=== PATIENT | male | born 1965 | race Caucasian/White ===

== ENCOUNTER 2020-01-01 08:02 | Emergency (ER) | payer BC, SELFPAY ==
[2020-01-01 08:09] VITALS: BP 161/86; PULSE 56; RESP 20; TEMP 36.7; O2SAT 100
--- NOTE | 2020-01-01 08:20 | ED.SKABFB ---
HPI - Skin/Abscess/Foreign Bdy General Chief complaint: Skin/Abscess/Foreign Body Stated complaint: left arm bite Time Seen by Provider: 01/01/20 08:20 Source: patient Mode of arrival: ambulatory Limitations: no limitations History of Present Illness HPI narrative: Yvon Shankar is a 54 yo male with a PMH of high cholesterol, GERD, anxiety, chronic pain, HTN, who comes to express with small induration of L forearm which he states started 2 days ago. 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, also was asking about the left leg keratosis that was treated by a chemistry specialist with what seems to be Lotrimin Related Data Home Medications Medication Instructions Recorded Confirmed albuterol sulfate 1 inh INHALATION QID PRN 01/01/20 01/01/20 aspirin 81 mg PO DAILY 01/01/20 01/01/20 atorvastatin 10 mg PO DAILY 01/01/20 01/01/20 escitalopram oxalate 20 mg PO DAILY 01/01/20 01/01/20 meloxicam 15 mg PO DAILY 01/01/20 01/01/20 pantoprazole 40 mg PO HS 01/01/20 01/01/20 propranolol 10 mg PO TID 01/01/20 01/01/20 Allergies Allergy/AdvReac Type Severity Reaction Status Date / Time No Known Allergies Allergy Verified 01/01/20 08:20 Review of Systems Review of Systems: Narrative: CONSTITUTIONAL: Denies fever, chills, sweats. EYES: Denies visual changes, redness, discharge. ENT: Denies rhinorrhea, congestion, sore throat, otalgia. CARDIOVASCULAR: Denies chest pain, palpitations, edema. RESPIRATORY: Denies dyspnea, wheezing, cough GASTROINTESTINAL: Denies abdominal pain, nausea, vomiting, diarrhea. GENITOURINARY: Denies dysuria, hematuria, abnormal discharge SKIN: Denies rash -has induration on left forearm NEUROLOGIC: Denies numbness, or focal weakness. PSYCHIATRIC: Denies anxiety or depression. [facility] Family History Family History (Updated 01/01/20 @ 08:34 by Domitila Sinclair CNP) Other Hypertension Social History Social History (Updated 01/01/20 @ 08:35 by Domitila Sinclair CNP) Smoking packs per day: 2 Smoking cigarettes per day: 40.0 Years smoked: 40 Smoking pack-years: 80.00 Smoking status: Current every day smoker Alcohol intake: current Alcohol use details: 6-15 beers per day Gender identity (if verbalized by the patient): Male Comments At time of signature, I agree with nursing past medical, surgical, social and family history. There is no relevant family history pertinent to the presenting complaint. Exam Narrative: Exam Narrative: GENERAL: This is a well-nourished, well-developed patient, in mild distress. HEAD: normocephalic, atraumatic. EYES: Sclera clear/white. Vision is grossly intact. EARS: External ears normal, auditory canals clear and without drainage, TMs normal without perforation. Hearing grossly intact. NOSE: External nose normal without nasal discharge, nares without redness, no rhinorrhea. THROAT: Mucous membranes moist, NECK: Neck supple, non-tender CARDIOVASCULAR: Regular rate and rhythm without murmurs, gallops, or rubs. RESPIRATORY: Clear to auscultation. Breath sounds equal bilaterally. No wheezes, rales, or rhonchi. GASTROINTESTINAL: Abdomen soft, non-tender, SKIN: warm, intact with no suspicious lesions -red indurated lesion left forearm with 2 small scabs in the center NEURO: awake, alert, and oriented to person, place and time. There were no obvious focal neurologic abnormalities. Steady gait EXTREMITIES: Normal range of motion. heratosis on L BACK: Nontender without deformity Course Course Emergency Course: Patient started on Keflex and directed to get hydrocortisone; keep area covered Discussed with patient his tobacco abuse and implications of 2 packs of cigarettes a day; patient states is very difficult to quit smoking. When asked about his alcohol use he says he drinks 15 beers a day; he also complained of shakes in the morning and I asked that was related to alcohol use in his
== END 2020-01-01 08:40 | disposition home or self-care (01) ==
PROVIDERS: Emergency Provider Nurse Practitioner
DX: L03.114 Cellulitis of left upper limb (principal); F17.210 Nicotine dependence, cigarettes, uncomplicated; E78.00 Pure hypercholesterolemia, unspecified; K21.9 Gastro-esophageal reflux disease without esophagitis; I10 Essential (primary) hypertension
CPT/HCPCS: 99213; G0463

== ENCOUNTER 2021-07-23 11:27 | Emergency (ER) | payer BC, SELFPAY ==
[2021-07-23 11:33] VITALS: BP 140/73; PULSE 65; RESP 14; TEMP 37.2; O2SAT 97
--- NOTE | 2021-07-23 11:42 | ED.URI ---
HPI - URI/Sore Throat General Chief Complaint: Upper Respiratory Infection Stated Complaint: cough and congestion Time Seen by Provider: 07/23/21 11:30 Source: patient and RN notes reviewed History of Present Illness HPI Narrative: Patient is a 56-year-old male who presents the urgent care with complaints of increased cough, congestion, postnasal drainage and sinus pressure. Patient states is been ongoing for approximately a week and a half and the cough is worsened at night. Patient does have a history of emphysema and COPD and continues to smoke 2 packs/day. Denies of any fever, chills, nausea, vomiting or shortness of breath. Patient denies of any known exposures to Covid or influenza. No other acute complaints. No acute distress noted. Patient aware of the plan of care. Some parts of this dictation were generated by voice recognition software and may contain typographical and/or grammatical inaccuracies. Related Data Home Medications Medication Instructions Recorded Confirmed albuterol sulfate 1 inh INHALATION QID PRN 01/01/20 07/23/21 aspirin 81 mg PO DAILY 01/01/20 07/23/21 atorvastatin 10 mg PO DAILY 01/01/20 07/23/21 escitalopram oxalate 20 mg PO DAILY 01/01/20 07/23/21 meloxicam 15 mg PO DAILY 01/01/20 07/23/21 pantoprazole 40 mg PO HS 01/01/20 07/23/21 propranolol 10 mg PO TID 01/01/20 07/23/21 Allergies Allergy/AdvReac Type Severity Reaction Status Date / Time No Known Allergies Allergy Verified 07/23/21 11:31 Review of Systems Review of Systems: CONSTITUTIONAL: Denies fever, chills, or sweats. EYES: Denies visual changes, redness, or discharge. ENT: Reports of drainage, sinus pressure, congestion CARDIOVASCULAR: Denies chest pain, palpitations, or edema. RESPIRATORY: Reports of cough with normal amount of dyspnea due to history GASTROINTESTINAL: Denies abdominal pain, nausea, vomiting, or diarrhea. GENITOURINARY: Denies dysuria or hematuria. SKIN: Denies rash or itching. MUSCULOSKELETAL: Denies back pain, joint pain, or myalgia. NEUROLOGIC: Denies headache, numbness, or weakness. All other systems reviewed are negative, except as documented in HPI. [facility] Family History Family History (Updated 01/01/20 @ 08:34 by Domitila Sinclair CNP) Other Hypertension Social History Social History (Updated 01/01/20 @ 08:35 by Domitila Sinclair CNP) Smoking packs per day: 2 Smoking cigarettes per day: 40.0 Years smoked: 40 Smoking pack-years: 80.00 Smoking status: Current every day smoker Alcohol intake: current Alcohol use details: 6-15 beers per day Gender identity (if verbalized by the patient): Male Comments At the time of my signature, I reviewed and agree with the nursing past medical, surgical, social, and family history. There is no relevant family history pertinent to the patient complaint. Exam Narrative: GENERAL: This is a well-nourished, well-developed patient, in no apparent distress. HEAD: normocephalic, atraumatic. EYES: PERRL. Sclera clear/white. Vision is grossly intact. EARS: External ears normal, auditory canals clear and without drainage, TMs normal without perforation. Hearing grossly intact. NOSE: External nose normal with no obvious nasal discharge, nares without redness, clear rhinorrhea. THROAT: Mucous membranes moist, mild erythema with moderate postnasal drainage NECK: Neck supple CARDIOVASCULAR: Regular rate and rhythm without murmurs, gallops, or rubs. RESPIRATORY: Slight crackles throughout SKIN: warm, intact with no suspicious lesions or rash, good texture and turgor. NEURO: awake, alert, and oriented to person, place and time. There were no obvious focal neurologic abnormalities. EXTREMITIES: No clubbing, cyanosis, or edema. Course Vital Signs Vital signs: Vital Signs Temperature 98.9 F 07/23/21 11:33 Pulse Rate 65 07/23/21 11:33 Respiratory Rate 14 07/23/21 11:33 Blood Pressure 140/73 07/23/21 11:33 Pulse Oximetry 97 07/23/21 11:
== END 2021-07-23 11:55 | disposition home or self-care (01) ==
PROVIDERS: Emergency Provider Nurse Practitioner Family
DX: J40 Bronchitis, not specified as acute or chronic (principal); J43.9 Emphysema, unspecified; F17.210 Nicotine dependence, cigarettes, uncomplicated; Z79.82 Long term (current) use of aspirin
CPT/HCPCS: 99213; G0463

== ENCOUNTER 2024-10-18 08:48 | Emergency (ER) | payer BC, SELFPAY ==
--- OUTSIDE RECORDS SUMMARY | 2024-10-18 08:51 | XMS_ITS | Encounter Summary ---
Author Organization [facility] Address [address] [place] [address] Phone Care Team Providers Care Medical Aides Teacher Name Role Phone Melinda Souza MD Primary Care Provider [phone] Rolando Rodriguez MD Unavailable Carly Melgar Primary Care Provider + Reason for Visit * Reason Comments Medication Refill Encounter Details Date Type Department Care Team (Late st Contact Info) Description 11/23/2022 Refill [facility] - Family Medicine [facility] [address] [place] [address] Melinda Souza MD [address] [place] [address] Medication Refill Social History Tobacco Use Types Packs/Day Years Used Date Smoking Tobacco: Every Day Cigarettes 1 40 Smokeless Tobacco: Never Alcohol Use Standard Drinks/Week Comments Yes 12 (1 standard drink = 0.6 oz pu re alcohol) PHQ-2 Answer Date Recorded Total Score - Questions 1-9 0 02/2023 Education Answer Date Recorded What is the highest level of school you have completed or the highest degree you have received? GED or equivalent 12/2020 Sexually Active Control Partners Comments Yes Female Sex and Gender Information Value Date Recorded Sex Assigned at Not on file Legal Sex Male 11:19 PM CDT Gender Identity Not on file Sexual Orientation Not on file COVID-19 Exposure Response Date Recorded In the last 10 days, have yo u been in contact with someone who was confirmed or suspected to have Coronavirus/COVID-19? No / Unsure 11/03/2022 7:56 AM DEVELOPMENT EDUCATOR documented as of this encounter Miscellaneous Notes * Telephone Encounter - Rosalinda Liu RN - 11/23/2022 3:25 PM CDT PRN medication requires review from provider Per nursing clinical judgement, provider to review and approve the medication(s) order(s) if appropriate. Requested Prescriptions Pending Prescriptions Disp Refills sildenafil citrate (VIAGRA) 100 MG Tablet [Pharmacy Med Name: Sildenafil Citrate 100 MG Oral Tablet] 30 Tablet 0 Sig: TAKE 1 TABLET BY MOUTH NEEDED FOR ERECTILE DYSFUNCTION Erectile Dysfunction Medication Protocol Passed - 11/23/2022 2:00 PM Passed - Visit with relevant provider in past 12 months or upcoming 90 days Recent Visits Date Type Provider Dept 11/03/22 Office Visit Melinda Souza MD [facility] 05/06/22 Office Visit Melinda Souza MD [facility] Showing recent visits within past 365 days and meeting all other requirements Future Appointments Date Type Provider Dept 02/09/23 Appointment Melinda Souza MD [facility] Showing future appointments within next 90 days and meeting all other requirements Passed - Absence of nitrates on med list Passed - Erectile dysfunction on problem list documented in this encounter Plan of Treatment Upcoming Encounters Date Type Department Care Team (Late st Contact Info) Description 11/20/2024 8:45 AM CDT Office Visit [facility] - [facility] - [place] [address] [place] [address] Carly Melgar PAC [address] [place] [address] documented as of this encounter Visit Diagnoses Not on filedocumented in this encounter Additional Health Concerns Assessment Noted Time PHQ-9 Depression Total Score: 0 11/04/19 8:00 AM DEVELOPMENT EDUCATOR documented as of this encounter Care Teams Medical Aides Teacher Relationship Specialty Start Date End Date Melinda Souza MD [address] [place] [address] PCP - General Family Medicine 08/17/17 10/03/23 Carly Melgar PAC [address] [place] [address] PCP - General Physician Tour Coordinator 10/05/23 Rolando Rodriguez MD [address] [address] Consulting Physician Endocrinology 06/29/22 documented as of this encounter
--- OUTSIDE RECORDS SUMMARY | 2024-10-18 08:51 | XMS_ITS | Encounter Summary ---
Author Organization [facility] Address [address] [place] [address] Phone Care Team Providers Care Senior Quality Methods Specialist Name Role Phone Melinda Souza MD Primary Care Provider [phone] Rolando Rodriguez MD Unavailable Carly Melgar Primary Care Provider + Reason for Visit * Reason Comments Medication Refill Encounter Details Date Type Department Care Team (Late st Contact Info) Description 02/06/2023 Refill [facility] - Family Medicine [facility] [address] [place] [address] Melinda Souza MD [address] [place] [address] Medication Refill Social History Tobacco Use Types [...] suspected to have Coronavirus/COVID-19? No / Unsure 02/09/2023 7:24 AM CDT documented as of this encounter Miscellaneous Notes * Telephone Encounter - Rosalinda Liu RN - 02/08/2023 9:22 AM CDT PRN medication requires review from provider Per nursing clinical judgement, provider to review and approve the medication(s) order(s) if appropriate. Requested Prescriptions Pending Prescriptions Disp Refills sildenafil citrate (VIAGRA) 100 MG Tablet [Pharmacy Med Name: Sildenafil Citrate 100 MG Oral Tablet] 30 Tablet 0 Sig: TAKE 1 TABLET BY MOUTH NEEDED FOR ERECTILE DYSFUNCTION Erectile Dysfunction Medication Protocol Passed - 02/06/2023 11:19 AM Passed - Visit with relevant provider in [...] [facility] - [place] [address] [place] [address] Carly Melgar PAC [address] [place] [address] documented as of this encounter Visit Diagnoses Not on filedocumented in this encounter Additional Health Concerns Assessment Noted Time PHQ-9 Depression Total Score: 0 03/07/20 23 8:00 AM TAX COLLECTOR documented as of this encounter Care Teams Senior Quality Methods Specialist Relationship Specialty Start Date End Date Melinda Souza MD [address] [place] [address] PCP - General Family Medicine 08/17/17 10/03/23 Carly Melgar PAC [address] [place] [address] PCP - General Physician Professional Skateboarder 10/05/23 Rolando Rodriguez MD [address] [address] Consulting Physician Endocrinology 06/29/22 documented as of this encounter
--- OUTSIDE RECORDS SUMMARY | 2024-10-18 08:51 | XMS_ITS | Referral Summary ---
Author Organization [facility] Address [address] [place] [address] Care Team Providers Care Evs Attendant Name Role Phone Carly Melgar Primary Care Provider Allergies No known active allergies Medications dicyclomine (BENTYL) 10 mg capsule take 1 - 2 Capsule by ORAL route every day as needed 30 5 01/06/20 17 Active multivitamin capsule take 1 capsule by oral route every day 0 03/24/20 12 Active atorvastatin (LIPITOR) 10 mg tablet Take 1 tablet (10 mg total) by mouth daily. 90 tablet 3 02/20/20 17 Active propranoloL (INDERAL) 10 mg tabletIndicati ons:hypertensi on Take 1 tablet (10 mg total) by mouth 3 (three) times a day Active escitalopram (LEXAPRO) 10 mg tabletIndicati ons:Anxiety with Depression Take 2 tablets (20 mg total) by mouth daily Active aspirin 81 mg enteric coated tabletIndicati ons:prevention of thrombosis Take 1 tablet (81 mg total) by mouth daily Active pantoprazole DR (PROTONIX) 40 mg EC tablet Take 1 tablet (40 mg total) by mouth daily Active celecoxib (CeleBREX) 200 mg capsule Take 1 capsule (200 mg total) by mouth 2 (two) times a day Active venlafaxine (EFFEXOR) 37.5 mg tablet Take 1 tablet (37.5 mg total) by mouth 2 (two) times a day Active HYDROcodone-ac etaminophen (NORCO) 7.5-325 mg per tabletIndicati ons:Pain Take 1 tablet by mouth every 6 (six) hours as needed for pain Active fluticasone propionate (FLONASE) 50 mcg/actuation nasal sprayIndicatio ns:Chronic rhinitis Administer 2 sprays into each nostril daily 16 g 11 03/08/20 23 Active Additional Information Patient not taking.Reported on 10/12/2023 famotidine (PEPCID) 40 mg tabletIndicati ons:Laryngeal spasm TAKE 1 TABLET(40 MG) BY MOUTH EVERY NIGHT 90 tablet 10/09/19 25 Active famotidine (PEPCID) 40 mg tabletIndicati ons:Laryngeal spasm Take 1 tablet (40 mg total) by mouth nightly 30 tablet 1 08/09/20 24 025 Discontinued Active Problems Problem Noted Date Diagnosed Date Pharyngoesophageal dysphagia 10/12/2023 Assessment & Plan (10/12/2023 12:38 PM CATERING SERVICE MANAGER): Esophagram Referral to GI for EGD Continue famotidine 40 mg at bedtime Continue smoking cessation Personal interpretation CT Neck: fullness in the posterior glottis area, no lymphadenopathy Lymphadenopathy 03/08/2023 Assessment & Plan (03/08/2023 8:31 AM CDT): CT neck Chronic rhinitis 03/08/2023 Assessment & Plan (03/08/2023 8:30 AM CDT): Flonase 2 sprays into each nostril while looking down over the sink, do not sniff in or blow nose after use for at least 30 minutes daily Sore throat 03/08/2023 Assessment & Plan (03/08/2023 8:31 AM CDT): Pepcid [address] neck Laryngeal spasm 03/08/2023 Assessment & Plan (10/12/2023 12:38 PM CATERING SERVICE MANAGER): Esophagram Referral to GI for EGD Continue famotidine 40 mg at bedtime Continue smoking cessation Assessment & Plan (03/08/2023 8:31 AM CDT): Pepcid 40 mg at bedtime Laryngopharyngeal reflux discussed and Handout provided Special screening for malignant neoplasms, colon 01/10/2020 Overview (01/10/2020): Added automatically from request for surgery [id number] Social History Tobacco Use Types Packs/Day Years Used Date Smoking Tobacco: Every Day Cigarettes 2 40 Smokeless Tobacco: Current Tobacco Cessation:Ready to Q uit: Not Asked; Counseling Given: Not Answered Comments:Smoking History Packs/day: 1.5 Packs Daily Cannabis use Alcohol Use Standard Drinks/Week Comments Yes 30 (1 standard drink = 0.6 oz pu re alcohol) AUDIT-C Answer Date Recorded Q1: How often do you have a drink containing alcohol? 4 or more times a week 10/26/2023 Q2: How many drinks containi ng alcohol do you have on a typical day when you are drinking? 7 to 9 Q3: How often do you have si x or more drinks on one occasion? Daily or almost daily 10/26/2023 Personal Safety Answer Date Recorded Have you ever been in or are you currently in a harmful physical or emotional relationship or is someone making you feel afraid or unsafe? Denies 10/26/2023 Sex and Gender Information Value Date Recorded Sex Assigned at Not on file Legal Sex Male 1:44 PM CATERING SERVICE MANAGER Gender Identity Not on file Sexual Orientation Not on file Last Filed Vital Signs Vital Sign Reading Time Taken Comments Blood Pressure 136/82 10/26/2023 8:50 AM CATERING SERVICE MANAGER Pulse 57 10/26/2023 8:50 AM CATERING SERVICE MANAGER Temperature 36.7 C (98 F) 10/26/2023 8:50 AM CATERING SERVICE MANAGER Respiratory Rate 18 10/26/2023 8:50 AM CATERING SERVICE MANAGER Oxygen Saturation 100% 10/26/2023 8:50 AM CATERING SERVICE MANAGER Inhaled Oxygen Concentration - - Weight 82.6 kg (182 lb) 10/26/2023 7:32 AM CATERING SERVICE MANAGER Height 167.6 cm (5' 6 ) 10/26/2023 7:32 AM CATERING SERVICE MANAGER Body Mass Index 29.38 10/26/2023 7:32 AM CATERING SERVICE MANAGER Plan of Treatment Not on file Procedures Procedure Name Priority Date/Time Associated Diagnosis Comments COLONOSCOPY 04/01/2020 7:54 AM CDT PSA SCREEN New Adm-Reg 12/23/2016 8:50 AM CDT from Last 3 Months or Most Recently Relevant to Health Maintenance Results * COLONOSCOPY (04/01/2020 7:54 AM CDT) Anatomical Region Laterality Modality Other Narrative Procedure Note Raz Melchor MD - 04/01/2020 7:54 AM CDT [facility] Patient Name: Yvon Shankar Procedure Date: 04/01/2020 7:54 AM Date of : 1965 Admit Type: Outpatient Age: 55 Gender: Male Attending MD: Raz Melchor M.D. Room: [facility] END[facility]COPY ROOM 2 Note Status: Finalized Patient Profile: Refer to note in patient chart for documentation of history and physical. Procedure: Colonoscopy Indications: High risk colon cancer surveillance: Personalhistory of colonic polyps, Last colonoscopy 3 years ago Referring MD: Melinda Souza MD Providers: Raz Melchor M.D. Impression: - Hemorrhoids found on perianal exam. - Diverticulosis in the sigmoid colon. - The examination was otherwise normal. - No specimens collected. Recommendation: - Discharge patient to home. - Resume previous diet. - Continue present medications. - Repeat colonoscopy in 5 years for surveillance. - Return to primary care physician as previously scheduled. Medicines: Propofol per Anesthesia Complications: No immediate complications. Estimated Blood Loss: Estimated blood loss: none. Procedure: Pre-Anesthesia Assessment: - This assessment was completed [Time of Assessment] prior to the administration of sedation. The benefits, risks and alternatives of theprocedure and sedation were discussed and informed consent was obtained. All questions were answered. Please referto the signed informed consent document in the medical record. The scope was passed under direct vision.The Colonoscope [id number] was introducedthrough the anus and advanced to the the cecum, identifiedby appendiceal orifice and ileocecal valve. Bowel prepwas administered using a single dose. The bowelpreparation used was Miralax. The bowel preparation used was bisacodyl tablets. The colonoscopy was performed without difficulty. The patient tolerated theprocedure well. The quality of the bowel preparation was excellent. Findings: Hemorrhoids were found on perianal exam. A few small-mouthed diverticula were found in the sigmoid colon. The exam was otherwise without abnormality. Electronically signed by Raz Melchor M.D. Raz Melchor M.D. 04/01/2020 8:22:12 AM Number of Addenda: 0 Note Initiated On: 04/01/2020 7:54 AM Procedure Code(s): --- Professional --- G0105, Colorectal cancer screening; colonoscopy on individual at high risk Diagnosis Code(s): --- Professional --- K57.30, Diverticulosis of large intestine without perforation orabscess without bleeding K64.9, Unspecified hemorrhoids Z86.010, Personal history of colonic polyps CPT copyright 2017 [employer]. All rights reserved. The codes documented in this report are preliminary and upon tool turret lathe set up operator reviewmay be revised to meet current compliance requirements. Recognized by the [employer] for promoting quality in endoscopy us Raz Melchor MD ENDOSCOPY PROCEDURES Final Re sult * PSA screen (12/23/2016 8:50 AM CDT) PSA-Total 0.47 0.10 - 4.00 ng/mL CANDE CHRISTOPHER (AS[facility]) Blood specimen (specimen) 12/23/2016 8:50 AM CDT 12/23/2016 6:03 PM CDT Narrative CANDE CHRISTOPHER ([facility]) - 12/23/2016 7:21 PM CDT FAX RESULTS TO [phone] us [facility] BLOOD ORDERABLES Final Resul t CANDE CHRISTOPHER (AS[facility]) [facility] [place] [address] from Last 3 Months or Most Recently Relevant to Health Maintenance [place] Advance Directives For more information, please contact: [phone] * Full Code (Latest Code Status on File) Date Activated Date Inactivated Comments 10/26/2023 7:26 AM 10/26/2023 1:11 PM * Full Code Date Activated Date Inactivated Comments 10/26/2023 7:26 AM 10/26/2023 7:26 AM * Full Code Date Activated Date Inactivated Comments 04/01/2020 7:53 AM 04/01/2020 1:09 PM * Full Code Date Activated Date Inactivated Comments 04/01/2020 7:53 AM 04/01/2020 7:53 AM Care Teams Evs Attendant Relationship Specialty Start Date End Date Carly Melgar PA [address] [address] PCP - General Geophysical Engineer 10/20/23
--- OUTSIDE RECORDS SUMMARY | 2024-10-18 08:51 | XMS_ITS | Encounter Summary ---
Author Organization [facility] Address [address] [place] [address] Phone Care Team Providers Care Geometry Tutor Name Role Phone Melinda Souza MD Primary Care Provider [phone] Rolando Rodriguez MD Unavailable Carly Melgar Primary Care Provider + Reason for Visit * Reason Comments Medication Refill Encounter Details Date Type Department Care Team (Late st Contact Info) Description 04/18/2023 Refill [facility] - Family Medicine [facility] [address] [place] [address] Melinda Souza MD [address] [place] [address] Medication Refill Social History Tobacco Use Types [...] on file Sexual Orientation Not on file documented as of this encounter Miscellaneous Notes * Telephone Encounter - Rosalinda Liu RN - 04/19/2023 2:46 PM CDT PRN medication requires review from provider Per nursing clinical judgement, provider to review and approve the medication(s) order(s) if appropriate. Requested Prescriptions Pending Prescriptions Disp Refills sildenafil citrate (VIAGRA) 100 MG Tablet [Pharmacy Med Name: Sildenafil Citrate 100 MG Oral Tablet] 30 Tablet 0 Sig: Take 1 Tablet by mouth as needed for Erectile Dysfunction. Erectile Dysfunction Medication Protocol Passed - 04/18/2023 11:58 AM Passed - Visit with relevant provider in past 12 months or upcoming 90 days Recent Visits Date Type Provider Dept 02/09/23 Office Visit Melinda Souza MD [facility] 11/03/22 Office Visit Melinda Souza MD [facility] 05/06/22 Office Visit Melinda Souza MD [facility] Showing recent visits within past 365 days and meeting all other requirements Future Appointments Date Type Provider Dept 05/17/23 Appointment Melinda Souza MD [facility] Showing [...] Group - Family Medicine - [place] [address] [place] [address] Carly Melgar, KELLIE [address] [place] [address] documented as of this encounter Visit Diagnoses Not on filedocumented in this encounter Additional Health Concerns Assessment Noted Time PHQ-9 Depression Total Score: 0 11/04/19 8:00 AM SALES COACH documented as of this encounter Care Teams Geometry Tutor Relationship Specialty Start Date End Date Melinda Souza MD [address] [place] [address] PCP - General Family Medicine 08/17/17 10/03/23 Carly Melgar PAC [address] [place] [address] PCP - General Physician Pharmacist Technician 10/05/23 Rolando Rodriguez MD [address] [address] Consulting Physician Endocrinology 06/29/22 documented as of this encounter
--- OUTSIDE RECORDS SUMMARY | 2024-10-18 08:51 | XMS_ITS | Clinical Summary ---
Author Organization [facility] Address [address] [place] [address] Care Team Providers Care Felt Puller Name Role Phone Carly Melgar Primary Care [...] 10/12/2023 Assessment & Plan (10/12/2023 12:38 PM FUDGER): Esophagram Referral to GI for EGD Continue [...] 03/08/2023 Assessment & Plan (10/12/2023 12:38 PM FUDGER): Esophagram Referral to GI for EGD Continue famotidine 40 mg at bedtime Continue smoking cessation Assessment & Plan (03/08/2023 8:31 AM CDT): Pepcid 40 mg at bedtime Laryngopharyngeal reflux discussed and Handout provided Special screening for malignant neoplasms, colon 01/10/2020 Overview (01/10/2020): Added automatically from request for surgery [id number] Surgical History Surgery Date Site/Laterality Comments OTHER SURGICAL HISTORY ankle fracture left and right: pinned/surgery APPENDECTOMY Appendectomy TONSILLECTOMY Tonsillectomy KNEE ARTHROSCOPY Arthroscopy knee KNEE ARTHROSCOPY 08/30/1985 - 08/29/1986 Arthroscopy knee POLYPECTOMY COLONOSCOPY 04/09/2017 KNEE SURGERY KNEE ARTHROSCOPY ESOPHAGOGASTRODUODENOSCOPY 10/26/2023 Medical History Medical History Date Comments Hx Other Medical 1989 ankle fracture left and right Pulmonary emphysema (HCC) Emphys carl Hx Other Medical Hepatitis Colon polyp Emphysema of lung (HCC) Family History Medical History Relation Name Comments Heart disease Brother Cardiovascular disease; Brain cancer Father Cancer -brain; Cause of : Cancer -brain Ovarian cancer Mother Cancer -ovari an; Cause of : Cancer -ovarian Alcohol abuse Other 1 Cancer Other 1 Family history of Cancer; Kidney disease Other 1 Heart disease Other 2 Family history of Heart disease; Kidney disease Other 3 Family histor y of Renal disease; Relation Name Status Comments Brother Father (Age 73) Mother (Age 70) Other 1 Other 2 Other 3 Social History Tobacco Use Types Packs/Day Years [...] on file Legal Sex Male 1:44 PM FUDGER Gender Identity Not on file Sexual Orientation Not on file Obstetrics History Last Filed Vital Signs Vital Sign Reading Time Taken Comments Blood Pressure 136/82 10/26/2023 8:50 AM FUDGER Pulse 57 10/26/2023 8:50 AM FUDGER Temperature 36.7 C (98 F) 10/26/2023 8:50 AM FUDGER Respiratory Rate 18 10/26/2023 8:50 AM FUDGER Oxygen Saturation 100% 10/26/2023 8:50 AM FUDGER Inhaled Oxygen Concentration - - Weight 82.6 kg (182 lb) 10/26/2023 7:32 AM FUDGER Height 167.6 cm (5' 6 ) 10/26/2023 7:32 AM FUDGER Body Mass Index 29.38 10/26/2023 7:32 AM FUDGER Plan of Treatment Health Maintenance Due Date Last Done Comments Hepatitis B Screening 1981 Regular Well Visit/Exam 18-64 1981 Zoster Vaccine (1 of 2) 2013 Depression Screening 07/06/2018 07/06/2017, 05/11/20 17 Prostate Cancer Screening-PSA 12/23/2018 12/23/2016 Pneumococcal vaccine <65 (2 of 2 - PCV) 09/27/2019 09/27/2018, 08/17/2017 Lung Cancer Screening 06/04/2024 06/04/2023 , 01/21/2022, 10/13/2019 Colon Cancer Screening-Colonoscopy 04/01/2030 04/01/2020, 04/09/2017, 04/09/2017, Additional history exists Hepatitis C Screening Completed 04/01/2012 , 03/16/2012, 03/15/2012 DTaP/Tdap/Td Vaccine Discontinued 01/05/2017 Influenza Vaccine Discontinued 06/28/2019, 09/27/2018 Colon Cancer Screening-CT Colonography Discontinued 04/01/2020, 04/09/2017, 04/09/2017, Additional history exists Colon Cancer Screening-DNA Stool Discontinued 04/01/2020, 04/09/2017, 04/09/2017, Additional history exists Colon Cancer Screening-FIT Discontinued 04/01, 04/09/2017, 04/09/2017, Additional history exists Colon Cancer Screening-Sigmoidoscopy Discontinued 04/01/2020, 04/09/2017, 04/09/2017, Additional history exists Procedures Procedure Name Priority Date/Time Associated Diagnosis Comments COLONOSCOPY 04/01/2020 7:54 AM CDT PSA SCREEN New Adm-Reg 12/23/2016 8:50 AM CDT from Last 3 Months or Most Recently Relevant to Health Maintenance Results * COLONOSCOPY (04/01/2020 7:54 AM CDT) Anatomical Region Laterality Modality Other Narrative Procedure Note Raz Melchor MD - 04/01/2020 7:54 AM CDT [facility] [place] Patient Name: Yvon Shankar Procedure Date: 04/01/2020 7:54 AM Date of : 1965 Admit Type: Outpatient Age: 55 Gender: Male Attending MD: Raz Melchor M.D. Room: [facility] ENDOSCOPY ROOM 2 Note Status: Finalized Patient [...] scope was passed under direct vision.The Colonoscope [id number] was introducedthrough the anus and advanced to [...] history of colonic polyps CPT copyright 2017 [employer]. All rights reserved. The codes documented in this report are preliminary and upon technical sales representatives reviewmay be revised to meet current compliance requirements. Recognized by the [employer] for promoting quality in endoscopy Raz Melchor MD ENDOSCOPY PROCEDURES Final Re sult * PSA screen (12/23/2016 8:50 AM CDT) PSA-Total 0.47 0.10 - 4.00 ng/mL BRIDGETTELORETO CANDI (ASAF) Blood specimen (specimen) 12/23/2016 8:50 AM CDT 12/23/2016 6:03 PM CDT Narrative CANDE CHRISTOPHER (ASAF) - 12/23/2016 7:21 PM CDT FAX RESULTS TO [phone] Feliberto Romero LAB BLOOD ORDERABLES Final Resul t CANDE CHRISTOPHER (ASAF) [facility] Department [place] [address] from Last 3 Months or Most Recently Relevant to Health Maintenance [place] Advance Directives For more information, please contact: [phone] * Full Code (Latest Code Status on File) Date Activated Date Inactivated Comments 10/26/2023 7:26 AM 10/26/2023 1:11 PM * Full Code Date Activated Date Inactivated Comments 10/26/2023 7:26 AM 10/26/2023 7:26 AM * Full Code Date Activated Date Inactivated Comments 04/01/2020 7:53 AM 04/01/2020 1:09 PM * Full Code Date Activated Date Inactivated Comments 04/01/2020 7:53 AM 04/01/2020 7:53 AM Care Teams Felt Puller Relationship Specialty Start Date End Date Carly Melgar PA [address] [place] [address] PCP - General Weighter 10/20/23
--- OUTSIDE RECORDS SUMMARY | 2024-10-18 08:51 | XMS_ITS | Encounter Summary ---
Author Organization [facility] Address [address] [place] [address] Phone Care Team Providers Care Architectural Inspector Name Role Phone Melinda Souza MD Primary Care Provider [phone] Rolando Rodriguez MD Unavailable Carly Melgar Primary Care Provider + Reason for Visit * Reason Comments Medication Refill Encounter Details Date Type Department Care Team (Late st Contact Info) Description 09/09/2023 Refill [facility] Medical Group - Family Medicine [facility] [address] [place] [address] Melinda Souza MD [address] [place] [address] Medication Refill Social History Tobacco Use Types Packs/Day Years Used Date Smoking Tobacco: Every Day Cigarettes 1 40 Smokeless Tobacco: Never Alcohol Use Standard Drinks/Week Comments Yes 12 (1 standard drink = 0.6 oz pu re alcohol) PHQ-2 Answer Date Recorded Total Score - Questions 1-9 0 04/30 Education Answer Date Recorded What is the [...] encounter Miscellaneous Notes * Telephone Encounter - Kyra Brown RMA - 09/13/2023 9:25 AM RN OBGYN scheduled OBGYN * Telephone Encounter - Rosalinda Liu RN - 09/10/2023 8:45 AM CST Needs OV to transfer care OBGYN * Telephone Encounter - Rosalinda Liu RN - 09/10/2023 8:45 AM CST Medication failed the protocol, provider to review and approve the medication order if appropriate. Requested Prescriptions Pending Prescriptions Disp Refills escitalopram (LEXAPRO) 20 MG Tablet [Pharmacy Med Name: ESCITALOPRAM 20MG TABLETS] 90 Tablet 1 Sig: TAKE 1 TABLET BY MOUTH DAILY SSRI (6 Month Refill Only) Protocol Failed - 09/09/2023 4:04 PM Failed - Has an encounter in the past 6 months with a depression, anxiety, adjustment disorder, OCD, or PTSD visit diagnosis Passed - Visit with relevant provider in past 6 months or upcoming 90 days Recent Visits Date Type Provider Dept 05/18/23 Office Visit Carly Melgar PAC [facility] Showing recent visits within past 182 days and meeting all other requirements Future Appointments No visits were found meeting these conditions. Showing future appointments within next 90 days and meeting all other requirements Passed - Patient has established therapy with SSRI for at least 6 months OBGYN documented in this encounter Plan of Treatment Upcoming Encounters Date Type Department Care Team (Late st Contact Info) Description 11/20/2024 8:45 AM CDT Office Visit [facility] Medical Group - Family Medicine [facility] [address] [place] [address] Carly Melgar PAC [address] [place] [address] documented as of this encounter Visit Diagnoses Not on filedocumented in this encounter Additional Health Concerns Assessment Noted Time PHQ-9 Depression Total Score: 0 05/18/20 23 8:03 AM CDT documented as of this encounter Care Teams Architectural Inspector Relationship Specialty Start Date End Date Melinda Souza MD [address] [place] [address] PCP - General Family Medicine 08/17/17 10/03/23 Carly Melgar PAC [address] [place] [address] PCP - General Physician Labor Relations Worker 10/05/23 Rolando Rodriguez MD [address] [address] Consulting Physician Endocrinology 06/29/22 documented as of this encounter
--- OUTSIDE RECORDS SUMMARY | 2024-10-18 08:51 | XMS_ITS | Encounter Summary ---
Author Organization [facility] Address [address] [place] [address] Phone Care Team Providers Care Client Advisor Name Role Phone Melinda Souza MD Primary Care Provider [phone] Rolando Rodriguez MD Unavailable Carly Melgar Primary Care Provider + Reason for Visit * Reason Comments Medication Refill Encounter Details Date Type Department Care Team (Late st Contact Info) Description 08/26/2023 Refill [facility] Medical Group - Family Medicine [facility] [address] [place] [address] Melinda Souza MD [address] [place] [address] Medication Refill Social History Tobacco Use Types [...] encounter Miscellaneous Notes * Telephone Encounter - Lorelei Vargas RN - 08/26/2023 10:56 AM FINANCE LEAD Per nursing clinical judgement, provider to review and approve the medication(s) order(s) if appropriate. Requested Prescriptions Pending Prescriptions Disp Refills pantoprazole (PROTONIX) 40 MG Tablet Delayed Response [Pharmacy Med Name: PANTOPRAZOLE 40MG TABLETS] 90 Tablet 1 Sig: TAKE 1 TABLET BY MOUTH DAILY Proton Pump Inhibitors Protocol Passed - 08/26/2023 9:55 AM Passed - Visit with relevant provider in past 12 months or upcoming 90 days Recent Visits Date Type Provider Dept 05/18/23 Office Visit Carly Melgar PAC [facility] 02/09/23 [facility] Office Visit Melinda Souza MD [facility] Showing recent visits within past 365 days and meeting all other requirements Future Appointments No visits were found meeting these conditions. Showing future appointments within next 90 days and meeting all other requirements NCE LEAD documented in this encounter Plan of Treatment Upcoming Encounters Date Type Department Care Team (Late st Contact Info) Description 11/20/2024 8:45 AM CDT Office Visit [facility] Medical Group - Family Medicine [facility] [address] [place] [address] Carly Melgar PAC [address] [place] [address] documented as of this encounter Visit Diagnoses Not on filedocumented in this encounter Additional Health Concerns Assessment Noted Time PHQ-9 Depression Total Score: 0 05/18/20 8:03 AM CDT documented as of this encounter Care Teams Client Advisor Relationship Specialty Start Date End Date Melinda Souza MD [address] [place] [address] PCP - General Family Medicine 08/17/17 10/03/23 Carly Melgar PAC [address] [place] [address] PCP - General Physician Technology Officer 10/05/23 Rolando Rodriguez MD [address] [address] Consulting Physician Endocrinology 06/29/22 documented as of this encounter
--- OUTSIDE RECORDS SUMMARY | 2024-10-18 08:51 | XMS_ITS | Patient Health Summary ---
Author Organization [facility] Address [address] [place] [address] Care Team Providers Care Work Environment Safety Inspector Name Role Phone Feliberto Romero MD Primary Care Provider [phone] Note from [facility],non-owned Affiliates and Associated Physician Practices is amultiple site organization consisting of ambulatory clinics and hospital sitesin [place], [place], [place] and [place]. This disclosure is being madepursuant to the Care Everywhere program and may not contain all information available regarding this patient. Last updated 18.[facility] Social History Tobacco Use Types Packs/Day Years Used Date Smoking Tobacco: Never Assessed Sex and Gender Information Value Date Recorded Sex Assigned at Not on file Gender Identity Not on file Sexual Orientation Not on file Procedures * PATHOLOGY REPORTS - HPF HISTORICAL(Performed 01/19/2011) Results * PATHOLOGY REPORTS - HPF HISTORICAL (01/19/2011 2:11 PM CDT) 01/19/2011 2:11 PM CDT Narrative [facility] - 01/19/2011 2:11 PM CDT Geoffrey Alves MD LAB - PATHOLOGY/CYTO LOGY ORDERABLES [facility] Care Teams Work Environment Safety Inspector Relationship Specialty Start Date End Date Feliberto Romero MD [address] [place] [id number] PCP - General 08/19/10
--- OUTSIDE RECORDS SUMMARY | 2024-10-18 08:51 | XMS_ITS | Encounter Summary ---
Author Organization [facility] Address [address] [place] [address] Phone Care Team Providers Care Ink Maker Name Role Phone Rolando Rodriguez MD Unavailable Carly Melgar Primary Care Provider + Reason for Visit * Reason Comments Medication Refill Encounter Details Date Type Department Care Team (Late st Contact Info) Description 12/03/2023 Refill [facility] Medical Group - Family Medicine [facility] [address] [place] [address] Carly Melgar PAC [address] [place] [address] Medication Refill Social History Tobacco Use Types Packs/Day Years Used Date Smoking Tobacco: Every Day Cigarettes 1 40 Smokeless Tobacco: Never Alcohol Use Standard Drinks/Week Comments Yes 12 (1 standard drink = 0.6 oz pu re alcohol) [facility] Utilities Answer Date Recorded In the past 12 months has [employer], gas, oil, or water company threatened to shut off services in your home? No 10/05/2023 Social Connection and Isolation Panel [NHANES] A nswer Date Recorded In a typical week, how many times do you talk on the phone with family, friends, or neighbors? Once a week 10/05/2023 How often do you get together with friends or re latives? Once a week 10/05/2023 Attends Yarsanism Services Not on file 10/05 Active Member of Clubs or Organizations Not on f ile 10/05/2023 Attends Club or Organization Meetings Not on adam e 10/05/2023 Marital Status Not on file 10/05/2023 AUDIT-C Answer Date Recorded Q1: How often do you have a drink containing alcohol? 4 or more times a week 10/05/2023 Q2: How many drinks containi ng alcohol do you have on a typical day when you are drinking? 5 or 6 Q3: How often do you have si x or more drinks on one occasion? Monthly 10/05/2023 Overall Financial Resource Strain (CARDIA) Answe r Date Recorded How hard is it for you to pa y for the very basics like food, housing, medical care, and heating? Not very hard 10/05/2023 PHQ-2 Answer Date Recorded Total Score - Questions 1-9 0 01/2024 [facility] - Occupational Stress Questionnaire Answer Date Recorded Do you feel stress - tense, restless, nervous, or anxious, or unable to sleep at night because your mind is troubled all the time - these days? To some extent 10/05/2023 Exercise Vital Sign Answer Date Recorde d On average, how many days pe r week do you engage in moderate to strenuous exercise (like a brisk walk)? 7 days 10/05/2023 On average, how many minutes do you engage in exercise at this level? 40 min 10/05/2023 Hunger Vital Sign Answer Date Recorded Within the past 12 months, y ou worried that your food would run out before you got the money to buy more. Never true 10/05/19 24 Within the past 12 months, t he food you bought just didn't last and you didn't have money to get more. Never true 10/05/2023 PRAPARE - Transportation Answer Date Re corded In the past 12 months, has l ack of transportation kept you from medical appointments or from getting medications? No 01/2024 In the past 12 months, has l ack of transportation kept you from meetings, work, or from getting things needed for daily living? No 10/05/2023 Housing Stability Vital Sign Answer Steve e Recorded In the last 12 months, was t here a time when you were not able to pay the mortgage or rent on time? No 10/05/2023 Number of Places Lived in the Last Year Not on f ile 10/05/2023 In the last 12 months, was t here a time when you did not have a steady place to sleep or slept in a retirement (including now)? No 10/05/2023 Education Answer Date Recorded What is the [...] Telephone Encounter - Rosalinda Liu RN - 12/03/2023 12:40 PM CDT Medication(s) refilled and signed per [facility] Chronic Medication Refill Standing Order for Pediatricand Adult Patients. Requested Prescriptions Pending Prescriptions Disp Refills escitalopram (LEXAPRO) 20 MG Tablet [Pharmacy Med Name: ESCITALOPRAM 20MG TABLETS] 90 Tablet 2 Sig: TAKE 1 TABLET BY MOUTH DAILY SSRI (6 Month Refill Only) Protocol Passed - 12/03/2023 8:21 AM Passed - Visit with relevant provider in past 6 months or upcoming 90 days Recent Visits Date Type Provider Dept 10/05/23 Office Visit Carly Melgar PAC [facility] Showing recent visits within past 182 days and meeting all other requirements Future Appointments Date Type Provider Dept 01/04/24 Appointment Carly Melgar PAC [facility] [address] [place] Showing future appointments within next 90 days and meeting all other requirements Passed - Patient has established therapy with SSRI for at least 6 months Passed - Has an encounter in the past 6 months with a depression, anxiety, adjustment disorder, OCD, or PTSD visit diagnosis documented in this encounter Plan of Treatment Upcoming Encounters Date Type Department Care Team (Late st Contact Info) Description 11/20/2024 8:45 AM CDT Office Visit [facility] Medical Group - Family Medicine - [place] [address] [place] [address] Carly Melgar, PAC [address] [place] [address] documented as of this encounter Visit Diagnoses Not on filedocumented in this encounter Additional Health Concerns Assessment Noted Time PHQ-9 Depression Total Score: 0 10/05/19 24 8:03 AM HOTEL ASSISTANT MANAGER documented as of this encounter Care Teams Ink Maker Relationship Specialty Start Date End Date Carly Melgar PAC [address] [place] [address] PCP - General Physician Banquet Food Server 10/05/23 Rolando Rodriguez MD [address] [address] [address] Consulting Physician Endocrinology 06/29/22 documented as of this encounter
--- OUTSIDE RECORDS SUMMARY | 2024-10-18 08:51 | XMS_ITS | Encounter Summary ---
Author Organization [facility] Address [address] [place] [address] Phone Care Team Providers Care Office Executive Name Role Phone Melinda Souza MD Primary Care Provider [phone] Rolando Rodriguez MD Unavailable Carly Melgar Primary Care Provider + Reason for Visit * Reason Comments Medication Refill Encounter Details Date Type Department Care Team (Late st Contact Info) Description 02/03/2023 [facility]ill [facility] [address]2 [place] [address] Melinda Souza MD [address] [place] [address] Medication Refill Social History Tobacco Use Types [...] encounter Miscellaneous Notes * Telephone Encounter - Ramila Bowles RN - 02/03/2023 8:20 AM CDT Medication failed the protocol, provider to review and approve the medication order if appropriate. Requested Prescriptions Pending Prescriptions Disp Refills celecoxib (CeleBREX) 200 MG Capsule [Pharmacy Med Name: CELECOXIB 200MG CAPSULES] 180 Capsule 1 Sig: TAKE 1 CAPSULE BY MOUTH TWICE DAILY NSAIDs Protocol Failed - 02/03/2023 5:51 AM Failed - Normal serum creatinine in past 12 months CREATININE, BLOOD Date Value Ref Range Status 11/01/2021 0.71 (L) 0.80 - 1.30 mg/dL Final Failed - AST less than 55 or ALT less than 90 in past 12 months SGOT (AST) Date Value Ref Range Status 11/01/2021 12 <=40 U/L Final SGPT (ALT) Date Value Ref Range Status 11/01/2021 10 <=41 U/L Final Failed - HGB greater than 10 or HCT greater than 30 in past 12 months HEMOGLOBIN (HGB) Date Value Ref Range Status 11/01/2021 14.8 13.0 - 16.5 g/dL Final HEMATOCRIT (HCT) Date Value Ref Range Status 11/01/2021 44.3 38.0 - 50.0 % Final Passed - Visit with relevant provider in [...] and meeting all other requirements Passed - No matching NSAID med order in past 45 days No matching medication orders between 12/20/2022 8:20 AM and 02/03/2023 8:20 AM escitalopram (LEXAPRO) 20 MG Tablet [Pharmacy Med Name: ESCITALOPRAM 20MG TABLETS] 90 Tablet 1 Sig: Take 1 Tablet by mouth daily. SSRI (6 Month Refill Only) Protocol Passed - 02/03/2023 5:51 AM Passed - Visit with relevant provider in past 6 months or upcoming 90 days Recent Visits Date Type Provider Dept 11/03/22 Office Visit Melinda Souza MD [facility] Showing recent visits within past 182 days and meeting all other requirements Future Appointments Date Type Provider Dept 02/09/23 Appointment Melinda Souza MD [facility] Showing future appointments within next 90 days [...] Description 11/20/2024 8:45 AM CDT Office Visit [facility] - Family [facility] [address]2 [place] [address] Carly Melgar PAC [address] [place] [address] documented as of this encounter Visit Diagnoses Not on filedocumented in this encounter Additional Health Concerns Assessment Noted Time PHQ-9 Depression Total Score: 0 11/04/19 8:00 AM RESP THERAPIST documented as of this encounter Care Teams Office Executive Relationship Specialty Start Date End Date Melinda Souza MD [address] [place] [address] PCP - General Family Medicine 08/17/17 10/03/23 Carly Melgar PAC [address] [place] [address] PCP - General Physician Keymodule Assembly Supervisor 10/05/23 Rolando Rodriguez MD [address] [address] Consulting Physician Endocrinology 06/29/22 documented as of this encounter
--- OUTSIDE RECORDS SUMMARY | 2024-10-18 08:51 | XMS_ITS | Encounter Summary ---
Author Organization [facility] Address [address] [place] [address] Phone Care Team Providers Care Transportation Department Supervisor Name Role Phone Melinda Souza MD Primary Care Provider [phone] Rolando Rodriguez MD Unavailable Carly Melgar Primary Care Provider + Reason for Visit * Reason Comments Medication Refill Encounter Details Date Type Department Care Team (Late st Contact Info) Description 07/09/2023 Refill [facility] - Family Medicine [facility] [address]2 [place] [address] Melinda Souza MD [address] [place] [address] Medication Refill Social History Tobacco Use Types [...] Telephone Encounter - Rosalinda Liu RN - 07/09/2023 10:43 AM CST PRN medication requires review from provider Per nursing clinical judgement, provider to review and approve the medication(s) order(s) if appropriate. Requested Prescriptions Pending Prescriptions Disp Refills sildenafil citrate (VIAGRA) 100 MG Tablet [Pharmacy Med Name: Sildenafil Citrate 100 MG Oral Tablet] 30 Tablet 0 Sig: TAKE 1 TABLET BY MOUTH NEEDED FOR ERECTILE DYSFUNCTION Erectile Dysfunction Medication Protocol Passed - 07/09/2023 8:48 AM Passed - Visit with relevant provider in past 12 months or upcoming 90 days Recent Visits Date Type Provider Dept 05/18/23 Office Visit Carly Melgar PAC [facility] 02/09/23 Office Visit Melinda Souza MD [facility] 11/03/22 Office Visit [facility] Showing recent visits within past 365 days and meeting all other requirements Future Appointments No visits were found meeting these conditions. Showing future appointments within next 90 days and meeting all other requirements Passed - Absence of nitrates on med list Passed - Erectile dysfunction on problem list ING ROOM HELPER documented in this encounter Plan of Treatment Upcoming Encounters Date Type Department Care Team (Late st Contact Info) Description 11/20/2024 8:45 AM CDT Office Visit [facility] - [facility] - [facility] [place] [address] Carly Melgar [facility] [place] [address] documented as of this encounter Visit Diagnoses Not on filedocumented in this encounter Additional Health Concerns Assessment Noted Time PHQ-9 Depression Total Score: 0 05/18/20 8:03 AM CDT documented as of this encounter Care Teams Transportation Department Supervisor Relationship Specialty Start Date End Date Melinda Souza MD [address]2 [place] [address] PCP - General Family Medicine 08/17/17 10/03/23 Carly Melgar PAC [address] [place] [address] PCP - General Physician Clay Modeler 10/05/23 Rolando Rodriguez MD [address] [address] Consulting Physician Endocrinology 06/29/22 documented as of this encounter
--- OUTSIDE RECORDS SUMMARY | 2024-10-18 08:51 | XMS_ITS | Clinical Summary ---
Author Organization [facility] Address [address] [place] [address] Phone Care Team Providers Care Ship'S Electronic Warfare Officer Name Role Phone Rolando Rodriguez MD Unavailable Carly Melgar Primary Care Provider + Allergies No known active allergies Medications Multiple Vitamin (MULTIVITAMINS PO) Take by mouth. Activ e Multiple Vitamins-Mineral s (ONE-A-DAY MENS 50+ PO) Take by mouth. Ac tive albuterol (Ventolin HFA) 108 (90 Base) MCG/ACT Aerosol Solution take 2 Puffs by inhalation every 4 hours as needed for Wheezing. 8.5 g 3 Active clotrimazole-bet amethasone (LOTRISONE) 1-0.05 % CreamIndications :Dermatitis Application Site: apply twice daily to area on left leg. 45 g 1 4 Active atorvastatin (LIPITOR) 10 MG Tablet Take 1 Tablet by mouth daily. 90 Tablet 2 4 Active amLODIPine (NORVASC) 5 MG TabletIndication s:Hypertension, unspecified type TAKE 1 TABLET BY MOUTH DAILY 90 Tablet 1 4 Active pantoprazole (PROTONIX) 40 MG Tablet Delayed Response TAKE 1 TABLET BY MOUTH DAILY 90 Tablet 1 4 Active busPIRone (BUSPAR) 10 MG Tablet TAKE 1 TABLET BY MOUTH TWICE DAILY 180 Tablet 1 4 Active celecoxib (CeleBREX) 200 MG Capsule TAKE 1 CAPSULE BY MOUTH TWICE DAILY 180 Capsule 1 4 Active losartan (COZAAR) 50 MG TabletIndication s:Hypertension, unspecified type Take 1 Tablet by mouth daily. 90 Tablet 1 4 Active sildenafil citrate (VIAGRA) 100 MG Tablet TAKE 1 TABLET BY MOUTH NEEDED FOR ERECTILE DYSFUNCTION 30 Tablet 5 Active escitalopram (LEXAPRO) 20 MG Tablet TAKE 1 TABLET BY MOUTH DAILY 90 Tablet 5 Active Active Problems Problem Noted Date Diagnosed Date Hypertension 05/18/2023 Erectile dysfunction 08/17/2017 Anxiety 08/17/2017 Chronic pain syndrome 08/17/2017 Dyslipidemia 08/17/2017 Chronic bronchitis 08/17/2017 Hepatitis C virus infection resolved after antiviral drug therapy 08/17/2017 Encounters Date Type Department Care Team Description 09/08/2024 Refill [facility] [address]2 [place] [address] Carly Melgar, PAC Medication Refill 08/31/2024 Refill [facility] [address]2 [facility] [place] [address] Carly Melgar, PAC Medication Refill 08/17/2024 Refill [facility] [address]2 [facility] [place] [address] Carly Melgar, PAC Medication Refill 08/07/2024 Refill [facility] [address] [facility] [place] [address] Carly Melgar, PAC Medication Refill from Last 3 Months Immunizations Immunization Administration Dates Next Due Influenza Vaccine, Quadrivalent, PF 06/28/2019,0 09/27/2018 Pneumococcal Vaccine Adult - 23 Valent 9,08/17/2017 TDAP Vaccine 01/05/2017 Family History Medical History Relation Name Comments Cancer Father Cancer Mother Relation Name Status Comments Father Mother Social History Tobacco Use Types Packs/Day Years Used Date Smoking Tobacco: Every Day Cigarettes 1 40 Smokeless Tobacco: Never Tobacco Cessation:Ready to Q uit: No; Counseling Given: No Alcohol Use Standard Drinks/Week Comments Yes 12 (1 standard drink = 0.6 oz pu re alcohol) [facility] Utilities Answer Date Recorded In the past 12 months has th e electric, gas, oil, or water company threatened to shut off services in your home? No 10/05/2023 Social Connection and Isolation Panel [NHANES] A nswer Date Recorded In a typical week, how many times do you talk on the phone with family, friends, or neighbors? Once a week 10/05/2023 How often do you get together with friends or re latives? Once a week 10/05/2023 Attends Sikhism Services Not on file 10/05 Active Member [...] Recorded Total Score - Questions 1-9 0 05/0 02/2024 [facility] [...] place to sleep or slept in a group home (including now)? No 10/05/2023 Education Answer Date [...] Sign Reading Time Taken Comments Blood Pressure 140/82 01/04/2024 8:23 AM CDT Pulse 58 01/04/2024 8:23 AM CDT Temperature 36.5 C (97.7 F) 01/04/2024 8:23 AM CDT Respiratory Rate 18 02/09/2023 7:28 AM CDT Oxygen Saturation 96% 01/04/2024 8:23 AM CDT Inhaled Oxygen Concentration - - Weight 81.6 kg (180 lb) 01/04/2024 8:23 AM CDT Height 170.2 cm (5' 7 ) 01/04/2024 8:23 AM CDT Body Mass Index 28.19 01/04/2024 8:23 AM CDT Plan of Treatment Upcoming Encounters Date Type Department Care Team (Late st Contact Info) Description 11/20/2024 8:45 AM CDT [facility] Visit [facility] [address] [place] [address] Carly Melgar, PAC [address] [place] [address] Health Maintenance Due Date Last Done Comments Cologuard 2013 Immunochemical Fecal Occult Blood 2013 Zoster Immunization (1 of 2) 2013 Pneumococcal Immunization (50+ years) (2 of 2 - PCV) 09/27/2019 09/27/2018, 08/17/2017 Respiratory Syncytial Virus (RSV) Immunization (Adult) (1 - Risk 60-74 years 1-dose series) 2023 Influenza Immunization (#1) 2024 06/28/2019, 0 09/27/2018 SARS-COV-2 Immunization ( - season) 2024 Lung Cancer Screening 06/04/2024 06/04/2023 , 01/21/2022, 10/13/2019 Colonoscopy 04/01/2025 04/01/2020, 04/01/2020 Colorectal Cancer Screening 04/01/2025 Td Immunization Every 10 Years (Adults With 1 Tdap) 01/05/2027 01/05/2017 04/01/2020, 04/01/2020 Pneumococcal Immunization Combined Discontinued 09/27/2018, 08/17/2017 Hepatitis C Virus (HCV) Screening Completed 05/18/2023, 02/12/2023 PSA Discussion Completed 10/06/2023, 02/2022, 11/11/2020, Additional history exists Hepatitis B Immunization Aged Out No longer eligible based on patient's age to complete this topic Meningococcal Immunization (ACWY) Aged Out No longer eligible based on patient's age to complete this topic Rotavirus Immunization Aged Out No lo nger eligible based on patient's age to complete this topic Procedures Procedure Name Priority Date/Time Associated Diagnosis Comments PSA SCREEN Routine 10/06/2023 7:22 AM CATEGORY SPECIALIST Prostate cancer screening CT CHEST SCREENING WO Routine 06/04/2023 8:00 AM CDT Encounter for screening for lung cancer Personal history of tobacco use, presenting hazards to health Nicotine dependence, cigarettes, uncomplicated HEPATITIS C RNA QUANT PCR VIRAL LOAD Routine 05/18/2023 8:49 AM CDT Encounter for hepatitis C screening test for low risk patient [facility] COLONOSCOPY Routine 04/01/2020 from Last 3 Months or Most Recently Relevant to Health Maintenance Results * PSA SCREEN (10/06/2023 7:22 AM CATEGORY SPECIALIST) PSA SCREEN, TOTAL 0.54 <4.00 ng/mL 10/06/2023 8:46 AM CATEGORY SPECIALIST [facility] Blood Venipuncture / Unknown 10/06/2023 7:22 AM CATEGORY SPECIALIST 10/06/2023 8:04 AM CATEGORY SPECIALIST Narrative [facility] - 10/06/2023 8:46 AM CATEGORY SPECIALIST [employer] Total PSA assay is a Chemiluminescent Microparticle Immunoassay (CMIA) for the quantitative determination of total PSA (both free PSA and PSA complexed to [id number]) in human serum. Total PSA values obtained with different assay methods, including Alfredo PSA assays, cannot be used interchangeably. us Carly Melgar PAC CHEMISTRY ORDERABLES Fin al Result [facility] [address] [place] [address] * CT CHEST SCREENING WO (06/04/2023 8:00 AM CDT) Anatomical Region Laterality Modality Chest N/A Computed Tomogra phy 06/05/2023 3:39 PM CDT Impressions 06/05/2023 3:42 PM CDT IMPRESSION: 1. No pulmonary mass or suspicious noncalcified pulmonary nodule. 2. Mild/moderate emphysema. Chronic bronchitis. Lung-RADS category 1: Negative. Recommendation: Low dose Screening CT of chest in 12 months. Narrative 06/05/2023 3:42 PM CDT EXAM DESCRIPTION: CT CHEST SCREENING WO REASON FOR STUDY: Screening CT of the chest in a current smoker with a 86 pack year smoking history. Additional history: None. TECHNIQUE: Low dose CT scan of the chest was performed without intravenous contrast using helical scanning technique. The exam extends from the lung apices through the lung bases. Automatic exposure control was used as a dose optimization technique. NOTE: This study was performed for the specific purposes of lung cancer screening and is not an alternative to diagnostic chest CT. RADIATION DOSE: CT dose index volume (CTDIvol) = 3.62 mGy COMPARISON: CT chest January 21, 2022 through October 13, 2019 FINDINGS: SMOKING RELATED LUNG DISEASE: Mild/moderate centrilobular and paraseptal emphysema. Diffuse bronchial wall thickening. LUNG NODULES: Numerous scattered benign calcified granulomas. No pulmonary mass or suspicious new noncalcified pulmonary nodule. CORONARY ARTERY CALCIFICATION: Present. OTHER: No airspace consolidation. No pleural effusion or pneumothorax. Central airways are patent. No lymphadenopathy. No cardiomegaly or pericardial effusion. No thoracic aortic aneurysm. No acute abnormality in the visualized upper abdomen. Spondylosis of the thoracic spine. Thoracic vertebral body heights and alignment are intact. Disc space narrowing of the mid and lower thoracic spine. THIS IS AN ELECTRONICALLY VERIFIED FINAL REPORT 06/05/2023 3:39 PM - Electronically signed by Rekha Moses D.O. AC: SERGEI Report ID: [id number] Reading Location: [id number] Procedure Note Rekha Moses DO - 06/05/2023 EXAM DESCRIPTION: CT CHEST SCREENING WO REASON FOR STUDY: Screening CT of the chest in a current smoker with a 86 pack year smoking history. Additional history: None. TECHNIQUE: Low dose CT scan of the chest was performed without intravenous contrast using helical scanning technique. The exam extends from the lung apices through the lung bases. Automatic exposure control was used as a dose optimization technique. NOTE: This study was performed for the specific purposes of lung cancer screening and is not an alternative to diagnostic chest CT. RADIATION DOSE: CT dose index volume (CTDIvol) = 3.62 mGy COMPARISON: CT chest January 21, 2022 through October 13, 2019 FINDINGS: SMOKING RELATED LUNG DISEASE: Mild/moderate centrilobular and paraseptal emphysema. Diffuse bronchial wall thickening. LUNG NODULES: Numerous scattered benign calcified granulomas. No pulmonary mass or suspicious new noncalcified pulmonary nodule. CORONARY ARTERY CALCIFICATION: Present. OTHER: No airspace consolidation. No pleural effusion or pneumothorax. Central airways are patent. No lymphadenopathy. No cardiomegaly or pericardial effusion. No thoracic aortic aneurysm. No acute abnormality in the visualized upper abdomen. Spondylosis of the thoracic spine. Thoracic vertebral body heights and alignment are intact. Disc space narrowing of the mid and lower thoracic spine. THIS IS AN ELECTRONICALLY VERIFIED FINAL REPORT 06/05/2023 3:39 PM - Electronically signed by Rekha Moses D.O. AC: SERGEI Report ID: [id number] Reading Location: [place] [address] IMPRESSION: 1. No pulmonary mass or suspicious noncalcified pulmonary nodule. 2. Mild/moderate emphysema. Chronic bronchitis. Lung-RADS category 1: Negative. Recommendation: Low dose Screening CT of chest in 12 months. Carly Melgar PAC IMG CT ORDERABLES Final Result * HEPATITIS C RNA QUANT PCR VIRAL LOAD (05/18/2023 8:49 AM CDT) HCV RNA QUANT PCR NON DETECTED NON DETECTED 05/20/2023 1:45 PM CDT [facility] HCV RNA QT LOG10 05/20/2023 1:45 PM CDT [facility] Comment: LOG 10 is not applicable. Sample held in Serology for 1 month. Call Laboratory if further testing is desired. This test was performed using MARLYN AmpliPrep MARLYN Taq Man Real Time PCR. Blood Venipuncture / Unknown 05/18/2023 8:49 AM CDT 05/18/2023 8:49 AM CDT Melinda Souza MD IMMUNOLOGY ORDERABLES Final Result [facility] [address] [facility] [place] [address], * [facility] COLONOSCOPY (04/01/2020) Raz Melchor MD PROCEDURE/MINOR SURGICAL ORDER GUERRERO Final Result from Last 3 Months or Most Recently Relevant to Health Maintenance Insurance [facility] Care Teams Ship'S Electronic Warfare Officer Relationship Specialty Start Date End Date Carly Melgar PAC [address] [place] [address] PCP - General Physician Stone Trimmer 10/05/23 Rolando Rodriguez MD [address] [id number] Consulting Physician Endocrinology 06/29/22
--- OUTSIDE RECORDS SUMMARY | 2024-10-18 08:51 | XMS_ITS | Encounter Summary ---
Author Organization [facility] Address [address] [place] [address] Phone Care Team Providers Care Double Back Operator Name Role Phone Rolando Rodriguez MD Unavailable Carly Melgar Primary Care Provider + Reason for Visit * Reason Comments Medication Refill Encounter Details Date Type Department Care Team (Late st Contact Info) Description 11/12/2023 Refill [facility] - Family Medicine [facility] #2 [place] [address] Carly Melgar PAC [address] [place] [address] Medication Refill Social History Tobacco Use Types Packs/Day Years Used Date Smoking Tobacco: Every Day Cigarettes 1 40 Smokeless Tobacco: Never Alcohol Use Standard Drinks/Week Comments Yes 12 (1 standard drink = 0.6 oz pu re alcohol) [facility] Utilities Answer Date Recorded In the past 12 months has [employer], gas, oil, or water company threatened to shut off services in your home? No 10/05/2023 Social Connection and Isolation Panel [NHANES] A nswer Date Recorded In a typical week, how many times do you talk on the phone with family, friends, or neighbors? Once a week 10/05/2023 How often do you get together with friends or re latives? Once a week 10/05/2023 Attends Druze Services Not on file 10/05 Active Member [...] Total Score - Questions 1-9 0 01/2024 [facility] - Occupational Stress [...] place to sleep or slept in a prison (including now)? No 10/05/2023 Education Answer Date [...] Telephone Encounter - Rosalinda Liu RN - 11/12/2023 12:28 PM CDT Medication(s) refilled and signed per [facility] Chronic Medication Refill Standing Order for Pediatricand Adult Patients. Requested Prescriptions Pending Prescriptions Disp Refills amLODIPine (NORVASC) 5 MG Tablet [Pharmacy Med Name: AMLODIPINE BESYLATE 5MG TABLETS] 90 Tablet 1 Sig: TAKE 1 TABLET BY MOUTH DAILY Calcium-Channel Blockers Protocol Passed - 11/12/2023 8:26 AM Passed - BP on record in the past year Clinician-entered: BP Readings from Last 3 Encounters: 10/05/23 164/80 05/18/23 170/80 02/09/23 140/80 Patient-entered: No data recorded Passed - Visit with relevant provider in past 12 months or upcoming 90 days Recent Visits Date Type Provider Dept 10/05/23 Office Visit Carly Melgar PAC [facility] 05/18/23 Office Visit Carly Melgar PAC [facility] 02/09/23 Office Visit Melinda Souza MD [facility] Showing recent visits within past 365 days and meeting all other requirements Future Appointments Date Type Provider Dept 01/04/24 Appointment Carly Melgar PAC [facility] Showing future appointments within next 90 days and meeting all other requirements documented in this encounter Plan of Treatment Upcoming Encounters Date Type Department Care Team (Late st Contact Info) Description 11/20/2024 8:45 AM CDT Office Visit [facility] - Family Medicine [facility] #2 [place] [address] Carly Melgar PAC [address] [place] [address] documented as of this encounter Visit Diagnoses Diagnosis Hypertension, unspecified type documented in this encounter Additional Health Concerns Assessment Noted Time PHQ-9 Depression Total Score: 0 10/05/19 24 8:03 AM DIETITIAN CONSULTANT documented as of this encounter Care Teams Double Back Operator Relationship Specialty Start Date End Date Craly Melgar PAC [address] [place] [address] PCP - General Physician Capture Manager 10/05/23 Rolando Rodriguez MD [address] [address] Consulting Physician Endocrinology 06/29/22 documented as of this encounter
--- OUTSIDE RECORDS SUMMARY | 2024-10-18 08:51 | XMS_ITS | Clinical Summary ---
Author Organization [facility] Address [address] [place] [address] Care Team Providers Care Membership Director Name Role Phone Feliberto Romero MD Primary Care Provider [phone] Source Comments [facility],non-owned Affiliates and Associated Physician Practices is amultiple site organization consisting of ambulatory clinics and hospital sitesin [place], [place], [place] and [place]. This disclosure is being madepursuant to the Care Everywhere program and may not contain all information available regarding this patient. Last updated 18.[facility] Social History Tobacco Use Types Packs/Day Years Used Date Smoking Tobacco: Never Assessed Sex and Gender Information Value Date Recorded Sex Assigned at Not on file Gender Identity Not on file Sexual Orientation Not on file Plan of Treatment Health Maintenance Due Date Last Done Comments COLOGUARD (AGES 45-75) - COL ON CA SCREENING 1963 COLON MONITORING 1963 COLONOSCOPY - COLON CA SCREENING 1963 CT COLONOGRAPHY - COLON CA SCREENING 1963 Colorectal Cancer Screening 1963 FIT - COLON CA SCREENING 1963 FLEX SIG - COLON CA SCREENING 1963 LIPID TESTING 1963 HIV SCREENING 1978 HEPATITIS C SCREENING 01/30/1981 DTAP/TDAP/TD VACCINES (1 - Tdap) 1982 PNEUMOCOCCAL VACCINE 50+ (1 of 1 - PCV) 2013 ZOSTER VACCINE (1 of 2) 2013 COVID-19 VACCINE ( - 2023-2 5 season) 2024 INFLUENZA VACCINE (#1) 2024 DEPRESSION SCREENING 08/30/2024 Respiratory Syncytial Virus (RSV) Vaccine Pt: or over 60 yrs (1 - 1-dose 75+ series) 2038 HEPATITIS B VACCINE Aged Out No longe r eligible based on patient's age to complete this topic HIB VACCINE Aged Out No longer eligi ble based on patient's age to complete this topic HPV VACCINE Aged Out No longer eligi ble based on patient's age to complete this topic MENINGOCOCCAL (Group B) VACCINE Aged Out No longer eligible based on patient's age to complete this topic MENINGOCOCCAL VACCINE Aged Out No eduarda debi eligible based on patient's age to complete this topic PNEUMOCOCCAL VACCINE Aged Out No long er eligible based on patient's age to complete this topic Care Teams Membership Director Relationship Specialty Start Date End Date Feliberto Romero MD [address] [place] [address] PCP - General 08/19/10
--- OUTSIDE RECORDS SUMMARY | 2024-10-18 08:51 | XMS_ITS | Encounter Summary ---
Author Organization [facility] Address [address] [place] [address] Phone Care Team Providers Care Emr Analyst Name Role Phone Melinda Souza MD Primary Care Provider [phone] Rolando Rodriguez MD Unavailable Carly Melgar Primary Care Provider + Reason for Visit * Reason Comments Medication Refill Encounter Details Date Type Department Care Team (Late st Contact Info) Description 04/29/2023 Refill [facility] - Family Medicine [facility]3] [address] [place] [address] Melinda Souza MD [address] [place] [address] Medication Refill Social History Tobacco Use Types [...] Telephone Encounter - Lorelei Vargas RN - 04/29/2023 3:02 PM CDT Medication failed the protocol, provider to review and approve the medication order if appropriate. Requested Prescriptions Pending Prescriptions Disp Refills atorvastatin (LIPITOR) 10 MG Tablet [Pharmacy Med Name: ATORVASTATIN 10MG TABLETS] 90 Tablet 1 Sig: Take 1 Tablet by mouth daily. Hmg CoA Reductase Inhibitors Protocol Passed - 04/29/2023 5:51 AM Passed - Visit with relevant [...] and meeting all other requirements Passed - Lipid panel in past 12 months LDL Date Value Ref Range Status 02/12/2023 104 5 - 130 mg/dL Final HDL CHOLESTEROL Date Value Ref Range Status 02/12/2023 39.6 (L) >40 mg/dL Final CHOLESTEROL Date Value Ref Range Status 02/12/2023 190 <=200 mg/dL Final TRIGLYCERIDES Date Value Ref Range Status 02/12/2023 231 (H) <150 mg/dL Final VLDL Date Value Ref Range Status 02/12/2023 46 5 - 55 mg/dL Final CHOL/HDL RATIO Date Value Ref Range Status 02/12/2023 4.8 (H) 0.0 - 4.4 Final NON-HDL CHOLESTEROL Date Value Ref Range Status 02/12/2023 150.4 (H) <130 mg/dL Final Passed - CMP in past 12 months SODIUM Date Value Ref Range Status 02/12/2023 139 136 - 144 mmol/L Final POTASSIUM Date Value Ref Range Status 02/12/2023 4.6 3.5 - 5.1 mmol/L Final CHLORIDE Date Value Ref Range Status 02/12/2023 102 100 - 110 mmol/L Final CO2, VENOUS Date Value Ref Range Status 02/12/2023 29 22 - 32 mmol/L Final ANION GAP Date Value Ref Range Status 02/12/2023 12.6 8.0 - 20.0 mmol/L Final GLUCOSE Date Value Ref Range Status 02/12/2023 86 70 - 99 mg/dL Final BUN Date Value Ref Range Status 02/12/2023 12 8 - 23 mg/dL Final CREATININE, BLOOD Date Value Ref Range Status 02/12/2023 0.66 (L) 0.80 - 1.30 mg/dL Final BUN/CREATININE RATIO Date Value Ref Range Status 02/12/2023 18 12 - 20 ratio Final TOTAL PROTEIN Date Value Ref Range Status 02/12/2023 7.4 6.0 - 8.3 g/dL Final ALBUMIN Date Value Ref Range Status 02/12/2023 4.6 3.5 - 5.2 g/dL Final Comment: The colormetric methods used for the determination of Albumin may lead to falsely elevated test results in patients suffering from renal failure or insufficiency due to interference with other proteins. 02/12/2023 4.6 3.5 - 5.0 g/dL Final A/G RATIO Date Value Ref Range Status 02/12/2023 1.6 1.0 - 2.0 Final CALCIUM Date Value Ref Range Status 02/12/2023 9.8 8.9 - 10.3 mg/dL Final T BILI Date Value Ref Range Status 02/12/2023 0.5 <=1.2 mg/dL Final SGOT (AST) Date Value Ref Range Status 02/12/2023 16 <=40 U/L Final SGPT (ALT) Date Value Ref Range Status 02/12/2023 13 <=41 U/L Final ALKALINE PHOSPHATASE Date Value Ref Range Status 02/12/2023 90 40 - 130 U/L Final GFR, EST. NONAFRICAN Date Value Ref Range Status 02/12/2023 >60 >=60 Final GFR, EST. Date Value Ref Range Status 02/12/2023 >60 >=60 Final GFR, ESTIMATED Date Value Ref Range Status 02/12/2023 >60 >=60 Final Comment: Creatinine Clearance is the preferred criteria for selecting drug dose adjustments in renally impaired patients. The GFR is provided as additional pertinent clinical information. GFR is reported in mL/min/1.73 sq m. Calculation based on the Chronic Kidney Disease Epidemiology Collaboration (CKD- EPI) equation refitwithout adjustment for race. IS THE PATIENT REQUIRED TO BE FASTING? Date Value Ref Range Status 02/12/2023 No Final busPIRone (BUSPAR) 10 MG Tablet [Pharmacy Med Name: BUSPIRONE 10MG TABLETS] 180 Tablet 0 Sig: TAKE 1 TABLET BY MOUTH TWICE DAILY Buspirone (6 Month Refill Only) Protocol Failed - 04/29/2023 5:51 AM Failed - Patient has established therapy with Buspirone for at least 6 months Passed - Visit with relevant provider in past 6 months or upcoming 90 days Recent Visits Date Type Provider Dept 02/09/23 Office Visit Melinda Souza MD [facility] 11/03/22 Office Visit Melinda Souza MD [facility] Showing recent visits within past 182 days and meeting all other requirements Future Appointments Date Type Provider Dept 05/17/23 Appointment Melinda Souza MD [facility] Showing future appointments within next 90 days and meeting all other requirements Passed - Has an encounter in the past 6 months with a depression or anxiety visit diagnosis documented in this encounter Plan of Treatment Upcoming Encounters Date Type Department Care Team (Late st Contact Info) Description 11/20/2024 8:45 AM CDT Office Visit [facility] - Family Medicine [facility]3] [address] [place] [address] Carly Melgar PAC [address] [place] [address] documented as of this encounter Visit Diagnoses Not on filedocumented in this encounter Additional Health Concerns Assessment Noted Time PHQ-9 Depression Total Score: 0 11/04/19 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
--- OUTSIDE RECORDS SUMMARY | 2024-10-18 08:51 | XMS_ITS | Referral Summary ---
Author Organization [facility] Address [address] [place] [address] Care Team Providers Care Word Processor Name Role Phone Feliberto Romero MD Primary Care Provider Source Comments [facility],non-owned Affiliates and Associated Physician Practices is amultiple site organization consisting of ambulatory clinics and hospital sitesin [place], [place], [place] and [place]. This disclosure is being madepursuant to the Care Everywhere program and may not contain all information available regarding this patient. Last updated 18.[facility] Social History Tobacco Use Types Packs/Day Years Used Date Smoking Tobacco: Never Assessed Sex and Gender Information Value Date Recorded Sex Assigned at Not on file Gender Identity Not on file Sexual Orientation Not on file Plan of Treatment Not on file Care Teams Word Processor Relationship Specialty Start Date End Date Feliberto Romero MD [address] [id number] PCP - General 08/19/10
[2024-10-18 08:57] VITALS: BP 125/80; PULSE 69; RESP 16; TEMP 36.6; O2SAT 100
--- NOTE | 2024-10-18 09:02 | ED_ITS ---
HPI - URI/Sore Throat General Chief Complaint: Upper Respiratory Infection Stated Complaint: throat/ears Time Seen by Provider: 10/18/24 09:02 Source: patient and RN notes reviewed Mode of arrival: ambulatory Limitations: no limitations History of Present Illness HPI Narrative: 59-year-old male presents with concern for bilateral ear pain, itchiness, fullness. Reports sinus congestion, drainage, fullness. Reports symptoms been going on for about a month. MD elicited complaint: sore throat, nasal congestion and other (ear pain) Related Data Home Medications ?Medication ?Instructions ?Recorded ?Confirmed ?Last Taken ?Type albuterol sulfate 90 mcg/actuation 1 inh inhalation QID PRN Shortness 01/01/20 07/23/21 Unknown History aerosol inhaler Of Breath Or Wheezing aspirin 81 mg tablet,delayed 81 mg PO DAILY 01/01/20 07/23/21 Unknown History release atorvastatin 10 mg tablet 10 mg PO DAILY 01/01/20 07/23/21 Unknown History escitalopram oxalate 20 mg tablet 20 mg PO DAILY 01/01/20 07/23/21 Unknown History meloxicam 15 mg tablet 15 mg PO DAILY 01/01/20 07/23/21 Unknown History pantoprazole 40 mg tablet,delayed 40 mg PO HS 01/01/20 07/23/21 Unknown History release propranolol 10 mg tablet 10 mg PO TID 01/01/20 07/23/21 Unknown History amlodipine 5 mg tablet mg 10/18/24 Unknown History buspirone 10 mg tablet mg 10/18/24 Unknown History celecoxib 200 mg capsule mg 10/18/24 Unknown History famotidine 40 mg tablet mg 10/18/24 Unknown History losartan 50 mg tablet mg 10/18/24 Unknown History Allergies Allergy/AdvReac Type Severity Reaction Status Date / Time No Known Allergies Allergy Verified 10/18/24 09:05 Review of Systems Review of Systems: CONSTITUTIONAL: Denies malaise, chills, sweats, or fever. EYES: Denies visual changes, redness, or discharge. ENT: Reports rhinorrhea, congestion, sinus pain, otalgia and sore throat. CARDIOVASCULAR: Denies chest pain, palpitations, or edema. RESPIRATORY: Reports cough. Denies dyspnea. GASTROINTESTINAL: Denies abdominal pain, nausea, vomiting, diarrhea SKIN: Denies rash or itching. MUSCULOSKELETAL: Denies myalgia. NEUROLOGIC: Denies headache. All systems reviewed & are unremarkable except as noted in HPI and below PMFSH Family History Family History (Updated 01/01/20 @ 08:34 by Domitila Sinclair, BATSHEVA) Other Hypertension Social History Social History (Updated 01/01/20 @ 08:35 by Domitila Sinclair, BATSHEVA) Smoking packs per day: 2 Smoking cigarettes per day: 40.0 Years smoked: 40 Smoking pack-years: 80.00 Smoking status: Current every day smoker Alcohol intake: current Alcohol use details: 6-15 beers per day Gender identity (if verbalized by the patient): Male Comments At time of signature, agree with nursing past medical, surgical, social and family history. There is no relevant family history pertinent to the presenting complaint Exam Narrative: GENERAL: Well-appearing, well-nourished, and in no acute distress. HEAD: Normocephalic EYES: PERRLA, conjunctivae clear ENT: Nares clear, turbinates edematous and erythematous Mucous membranes moist. TM not visible due to excess cerumen bilaterally; no tragal tenderness. Oropharynx not erythematous without lesions. Tonsils not enlarged and without exudate, no drooling, no hoarseness, no trismus, uvula midline. NECK: Supple. No lymphadenopathy CHEST: Clear to auscultation, breath sounds equal. No wheezing, rhonchi, rales, or stridor. No respiratory distress, speaks in full sentences. HEART: Regular rate and rhythm. No murmur heard. SKIN: Warm, dry, no rash. NEURO: Alert and oriented x3. PSYCH: Normal mood and affect Course Course Emergency Course: Patient is aware of diagnosis, understands and agrees to treatment plan. Anticipatory guidance given. Patient agrees to follow-up as directed and is aware of reasons to seek care at the emergency department. Portions of this record may have been created with voice recognition software Level of Care: Express Care Visit Vital Signs Vital signs: Vital Signs Temperature 97.9 F 10/18/24 08:57 Pulse Rate 69 10/18/24 08:57 Respiratory Rate 16 10/18/24 08:57 Blood Pressure 125/80 10/18/24 08:57 Pulse Oximetry 100 10/18/24 08:57 Oxygen Delivery Room Air 10/18/24 08:57 Temperature 97.9 F 10/18/24 08:57 Pulse Rate 69 10/18/24 08:57 Respiratory Rate 16 10/18/24 08:57 Blood Pressure 125/80 10/18/24 08:57 Pulse Oximetry 100 10/18/24 08:57 Oxygen Delivery Room Air 10/18/24 08:57 Reviewed. MDM - URI/Sore Throat MDM Narrative Medical decision making narrative: Differential diagnosis considered: Florian virus, strep pharyngitis, allergic rhinitis, upper respiratory tract infection, sinusitis, rhinosinusitis, nasopharyngitis. viral pharyngitis, otitis media, otitis externa, pneumonia, bronchitis, viral cough syndrome, viral syndrome, and influenza. Exam findings show no acute concerns or changes; patient is non-toxic appearing and is in no distress. Patient is appropriate for outpatient treatment and follow-up. Lab Data Attestation: I reviewed the patient's lab results. Critical Care Time Critical Care Time Critical Care Time: No Discharge Plan Discharge Clinical Impression: Sinusitis Patient Disposition: Home, Self-Care Condition: Stable Instructions: Antibiotic Form, Sinusitis (ED) Additional Instructions: Symptomatic treatment of a sinus infection aims to relieve symptoms. These treatments do not shorten the duration of illness. Nonprescription pain medications, such as acetaminophen (eg, Tylenol) or ibuprofen (eg, Motrin, Advil), are recommended for pain. Flushing the nose and sinuses with a saline solution several times per day has been proven to decrease pain associated with congestion and shorten the duration of symptoms. Nasal steroids (such as Flonase, 2 sprays in each nostril daily) can help to reduce swelling inside the nose, usually within two to three days. These drugs have few side effects and relieve symptoms in most people. Oral decongestants (pseudoephedrine and phenylephrine) may be helpful if you have associated symptoms of ear pain or fullness. Medications to thin secretions (such as guaifenesin) may help to clear mucus. You can use hydrogen peroxide, 1 cap full in each ear for 10 minutes at a time to help soften ear wax Please follow-up with your primary care doctor in the next 1-2 days. If you cannot follow-up with your primary care doctor please go to the ED for any urgent issues. If you have any worsening of symptoms or any other concerns please go to the ED immediately. Patient Language: Portuguese Prescriptions: New pseudoephedrine HCl [12 Hour Decongestant] 120 mg tablet extended release 120 mg PO Q12H PRN (Reason: nasal congestion) Qty: 20 0RF amoxicillin-pot clavulanate 875-125 mg tablet 1 tablet PO Q12H 10 Days Qty: 20 0RF No Action losartan 50 mg tablet celecoxib 200 mg capsule famotidine 40 mg tablet amlodipine 5 mg tablet buspirone 10 mg tablet atorvastatin 10 mg Tablet 10 mg PO DAILY meloxicam 15 mg Tablet 15 mg PO DAILY propranolol 10 mg Tablet 10 mg PO TID pantoprazole 40 mg Tablet,Delayed Release (Dr/Ec) 40 mg PO HS escitalopram oxalate 20 mg Tablet 20 mg PO DAILY aspirin 81 mg Tablet,Delayed Release (Dr/Ec) 81 mg PO DAILY albuterol sulfate 90 mcg/actuation Hfa Aerosol Inhaler 1 inh INHALATION QID PRN (Reason: Shortness Of Breath Or Wheezing) hydrocortisone 1 % cream 1 applic TOPICAL TID PRN (Reason: itching) Qty: 14.2 0RF albuterol sulfate 90 mcg/actuation HFA aerosol inhaler 2 puff INHALATION QID PRN (Reason: shortness of breath or wheezing) Qty: 8 0RF Follow-up/Referrals: PHYSICIAN NOT ON STAFF,NONSTAFF [Primary Care Provider] - Time of Disposition: 09:11
== END 2024-10-18 09:13 | disposition home or self-care (01) ==
PROVIDERS: Emergency Provider Nurse Practitioner
DX: J32.9 Chronic sinusitis, unspecified (principal); F17.210 Nicotine dependence, cigarettes, uncomplicated; Z79.82 Long term (current) use of aspirin
CPT/HCPCS: 99213; G0463

== ENCOUNTER 2025-07-11 09:07 | Emergency (ER) | payer BC, SELFPAY ==
--- NOTE | 2025-07-11 09:10 | ED_ITS ---
HPI - URI/Sore Throat General Chief Complaint: Upper Respiratory Infection Stated Complaint: Cough/Fatigue Time Seen by Provider: 07/11/25 09:22 Source: patient, RN notes reviewed and old records reviewed Mode of arrival: ambulatory Limitations: no limitations History of Present Illness HPI Narrative: 60 year old male presents to doctors hospital care with complaints of 3 week duration of sinus congestion, cough, body aches and fatigue. Patient reports that he thinks he has taken some Mucinex. Patient is poor historian unsure of medication regime and PMH. Patient reports that he is 2 pack per day smoker and has COPD, admits to some noted wheezing and some dyspnea with exertion.Patient reports no known fevers chills or sweats, states cough is worse at night MD elicited complaint: cough, rhinorrhea, nasal congestion and sinus pain Pertinent past history: sinusitis and other (bronchitis) Onset (ago): week(s) (3) Consistency: progressively worsening Pain scale (0-10): 4 Able to tolerate fluids by mouth: Yes Treatments prior to arrival: other (Mucinex) Related Data Home Medications ?Medication ?Instructions ?Recorded ?Confirmed ?Last Taken ?Type aspirin 81 mg tablet,delayed 81 mg PO DAILY 01/01/20 1 09/22/20 Unknown History release atorvastatin 10 mg tablet 10 mg PO DAILY 01/01/2007/01 Unknown History escitalopram oxalate 20 mg tablet 20 mg PO DAILY 12/3107/23/21 Unknown History pantoprazole 40 mg tablet,delayed 40 mg PO HS 01/01/20 07/23/21 Unknown History release amlodipine 5 mg tablet mg 10/18/24 Unknown History buspirone 10 mg tablet mg 10/18/24 Unknown History celecoxib 200 mg capsule mg 10/18/24 Unknown History famotidine 40 mg tablet mg 10/18/24 Unknown History losartan 50 mg tablet mg 10/18/24 Unknown History sildenafil 100 mg tablet mg 07/11/25 Unknown History Allergies Allergy/AdvReac Type Severity Reaction Status Date / Time No Known Allergies Allergy Verified 07/11/25 09:17 Review of Systems Review of Systems: CONSTITUTIONAL: Reports malaise, no reported chills, sweats, or fever. EYES: Denies visual changes, redness, or discharge. ENT: Reports rhinorrhea, congestion, sinus pain,no otalgia and no sore throat. CARDIOVASCULAR: Denies chest pain, palpitations, or edema. RESPIRATORY: Reports frequent cough some wheezing states cough worse at night.?Reports some dyspnea with exertion GASTROINTESTINAL: Denies abdominal pain, nausea, vomiting, diarrhea SKIN: Denies rash or itching. MUSCULOSKELETAL: Denies myalgia. NEUROLOGIC:Reports headache. All systems reviewed & are unremarkable except as noted in HPI and below PMFSH Past Medical History Medical History (Updated 07/12/25 @ 10:55 by María Arreguin APRN) History of COPD Tobacco abuse GERD (gastroesophageal reflux disease) Arthritis HTN (hypertension) Anxiety Surgical History Surgical History (Updated 07/12/25 @ 10:53 by María Arreguin APRN) History of arthroscopy of right knee History of tonsillectomy History of appendectomy History of orthopedic surgery for bilateral fractured anlkles Family History Family History (Updated 01/01/20 @ 08:34 by Domitila Sinclair, HORTICULTURE TEACHER) Other Hypertension Social History Social History (Updated 07/12/25 @ 10:49 by María Arreguin APRN) Smoking packs per day: 2 Smoking cigarettes per day: 40.0 Years smoked: 40 Smoking pack-years: 80.00 Smoking status: Current every day smoker Alcohol intake: current Alcohol use details: 6-15 beers per day Substance use type: does not use Living arrangements: with family Gender identity (if verbalized by the patient): Male Comments At time of signature, agree with nursing past medical, surgical, social and family history. There is no relevant family history pertinent to the presenting complaint Exam Narrative: GENERAL: Well-appearing, well-nourished, and in no acute distress. HEAD: Normocephalic EYES: PERRLA, conjunctivae clear ENT: Nares clear, turbinates edematous and erythematous, clear discharge, sinus pressure ad some headache. Mucous membranes moist. TM pearly monet with dull light reflex bilaterally; no tragal tenderness. Oropharynx erythematous without lesions. Tonsils not present and throat without exudate, no drooling, no hoarseness, no trismus, uvula midline, post nasal drainage NECK: Supple. No lymphadenopathy, CHEST: Scattered wheezes throughout lung field, breath sounds equal. + wheezing, rhonchi, rales, or stridor. No respiratory distress, speaks in full sentences.frequent cough noted productive at times, SAO2 99% on room air HEART: Regular rate and rhythm. No murmur heard. SKIN: Warm, dry, no rash. NEURO: Alert and oriented x3. PSYCH: Normal mood and affect Course Course Emergency Course: Patient is aware of diagnosis, understands and agrees to treatment plan.? Anticipatory guidance given.? Patient agrees to follow-up as directed and is aware of reasons to seek care at the emergency department. Portions of this record may have been created with voice recognition software Level of Care: Express Care Visit Vital Signs Vital signs: Vital Signs Temperature 36.6 C 07/11/25 09:14 Pulse Rate 68 07/11/25 09:14 Respiratory Rate 18 07/11/25 09:14 Blood Pressure 134/86 07/11/25 09:14 Pulse Oximetry 99 07/11/25 09:14 Oxygen Delivery Room Air 07/11/25 09:14 Temperature 36.6 C 07/11/25 09:14 Pulse Rate 68 07/11/25 09:14 Respiratory Rate 18 07/11/25 09:14 Blood Pressure 134/86 07/11/25 09:14 Pulse Oximetry 99 07/11/25 09:14 Oxygen Delivery Room Air 07/11/25 09:14 Reviewed MDM - URI/Sore Throat MDM Narrative Medical decision making narrative: Differential diagnosis considered: Florian virus, strep pharyngitis, allergic rhinitis, upper respiratory tract infection, sinusitis, rhinosinusitis, nasopharyngitis. viral pharyngitis, otitis media, otitis externa, pneumonia, bronchitis, viral cough syndrome, viral syndrome, and influenza.? Exam findings show no acute concerns or changes; patient is non-toxic appearing and is in no distress.? Patient is appropriate for outpatient treatment and follow-up. Differential Diagnosis Differential diagnosis: Likely upper respiratory infection, sinusitis, viral infection, bronchitis and other ( acute cough, tobacco abuse) Medical Records Attestation: I reviewed the patient's medical records. Lab Data Attestation: I reviewed the patient's lab results. Critical Care Time Critical Care Time Critical Care Time: No Discharge Plan Discharge Clinical Impression: Acute cough, Tobacco abuse, Bronchitis Sinusitis Qualifiers: Sinusitis location: pansinusitis Chronicity: acute Recurrence: not specified as recurrent Qualified Code(s): J01.40 - Acute pansinusitis, unspecified Patient Disposition: Home Condition: Stable Instructions: Antibiotic Form, Sinusitis (ED), Acute Bronchitis (ED), Acute Cough (ED) Additional Instructions: Increase fluids especially juices and water Ssys-qof-wcnipaf cough and cold medicine of your choice for your symptoms Zyrtec Claritin or Brittney daily Continue your inhaler/nebulizer as directed Steroids as directed--take with food heat to the face 20-30 minutes 4-6 times a day for pain Salt water gargles, throat lozenges or throat sprays as desired Antibiotic as directed--finished the medication If your symptoms persist, change or worsen significantly before you can contact your personal physician then please, without delay, go to the emergency department for further evaluation. Follow-up with PCP in 7-10 days or sooner if needed Follow up with PCP soon in regards to your blood pressure which is elevated above threshold for referral. Blood pressure above 120/80 may indicate pre- hypertension. 134/86 stop smoking Patient Language: Persian Prescriptions: New albuterol sulfate [Ventolin HFA] 90 mcg/actuation HFA aerosol inhaler 2 puff inhalation QID PRN (Reason: shortness of breath or wheezing) Qty: 8.5 0RF Rx Instructions: what ever is covered by insurance prednisone 50 mg tablet 50 mg PO DAILY Qty: 5 0RF amoxicillin-pot clavulanate 875-125 mg tablet 1 tablet PO Q12H Qty: 20 0RF Rx Instructions: take with food recommend probiotic while taking this medication complete all doses No Action losartan 50 mg tablet celecoxib 200 mg capsule famotidine 40 mg tablet amlodipine 5 mg tablet buspirone 10 mg tablet atorvastatin 10 mg Tablet 10 mg PO DAILY pantoprazole 40 mg Tablet,Delayed Release (Dr/Ec) 40 mg PO HS escitalopram oxalate 20 mg Tablet 20 mg PO DAILY aspirin 81 mg Tablet,Delayed Release (Dr/Ec) 81 mg PO DAILY sildenafil 100 mg tablet Follow-up/Referrals: UNKNOWN,DOCTOR [Primary Care Provider] Time of Disposition: 09:41 Quality Sutton Coma Scale Eyes: Open Verbal: Oriented and Alert Motor: Follows Commands [place] Coma Total Score: 15
[2025-07-11 09:14] VITALS: BP 134/86; PULSE 68; RESP 18; TEMP 36.6; O2SAT 99
--- OUTSIDE RECORDS SUMMARY | 2025-07-11 09:46 | XMS_ITS | Encounter Summary ---
Author Organization [facility] Address [address] [place] [id number] Phone Care Team Providers Care Marine Equipment Research Engineer Name Role Phone Melinda Souza MD Primary Care Provider [phone] Rolando Rodriguez MD Unavailable Carly Melgar Primary Care Provider + Reason for Visit * Reason Comments Medication Refill Encounter Details Date Type Department Care Team (Late st Contact Info) Description 02/03/2023 Refill [facility] - Family Medicine [facility] [address] [place] [address] [place] [address] [place] [address] Medication Refill Social History Tobacco Use Types Packs/Day Years Used Date Smoking Tobacco: Every Day Cigarettes 1 40 Smokeless Tobacco: Never Alcohol Use Standard Drinks/Week Comments Yes 12 (1 standard drink = 0.6 oz pu re alcohol) PHQ-2 Answer Date Recorded Total Score - Questions 1-9 0 0 02/2023 Education Answer Date Recorded What [...] [facility] [place] Showing recent visits within past 182 days [...] documented in this encounter Plan of Treatment Not on file documented as of this encounter Visit Diagnoses Not on filedocumented in this encounter Additional Health Concerns Assessment Noted Time PHQ-9 Depression Total Score: 0 11/04/19 8:00 AM BRICK WHEELER documented as of this encounter Care Teams Marine Equipment Research Engineer Relationship Specialty Start Date End Date Melinda Souza MD PCP - General Family Medicine 08/17/17 10/03/23 Carly Melgar PAC [address] [place] [address] PCP - General Physician Bus Washer 10/05/23 Rolando Rodriguez MD [address] [phone] Consulting Physician Endocrinology 06/29/22 05/14/25 documented as of this encounter
--- OUTSIDE RECORDS SUMMARY | 2025-07-11 09:46 | XMS_ITS | Encounter Summary ---
Author Organization [facility] Address [address] [place] [id number] Phone Care Team Providers Care Clinical Informatics Spec Name Role Phone Melinda Souza MD Primary Care Provider Rolando Rodriguez MD Unavailable Carly Melgar Primary Care Provider + Reason for Visit * Reason Comments Medication Refill Encounter Details Date Type Department Care Team (Late st Contact Info) Description 04/18/2023 Refill [facility] - [facility] [address] [place] [address] [place] [address] [place] [address] Medication Refill Social History Tobacco Use Types [...] [place] 05/06/22 Office Visit Melinda Souza MD [facility] [...] Depression Total Score: 0 11/04/19 8:00 AM DIRECTOR OF ROOMS documented as of this encounter Care Teams Clinical Informatics Spec Relationship Specialty Start Date End Date Melinda Souza MD PCP - General Family Medicine 08/17/17 10/03/23 Carly Melgar PAC [address] [place] [address] PCP - General Physician Tool Worker 10/05/23 Rolando Rodriguez MD [address] [address] Consulting Physician Endocrinology 06/29/22 05/14/25 documented as of this encounter
--- OUTSIDE RECORDS SUMMARY | 2025-07-11 09:46 | XMS_ITS | Encounter Summary ---
Author Organization [facility] Address [address] [place] [address] Phone Care Team Providers Care Mold Runner Name Role Phone Melinda Souza MD Primary Care Provider Rolando Rodriguez MD Unavailable Carly Melgar Primary Care Provider + Reason for Visit * Reason Comments Medication Refill Encounter Details Date Type Department Care Team (Late st Contact Info) Description 11/23/2022 Refill [facility] - Family Medicine [facility] [address] [place] [address] [place] [address] [place] [address] Medication Refill Social History Tobacco Use Types [...] Coronavirus/COVID-19? No / Unsure 11/03/2022 7:56 AM CAR SERVICER documented as of this encounter Miscellaneous Notes [...] Depression Total Score: 0 11/04/19 8:00 AM CAR SERVICER documented as of this encounter Care Teams Mold Runner Relationship Specialty Start Date End Date Melinda Souza MD PCP - General Family Medicine 08/17/17 10/03/23 Carly Melgar PAC [address] [place] [address] PCP - General Physician Automatic Splicing Machine Operator 10/05/23 Rolando Rodriguez MD [address] [phone] Consulting Physician Endocrinology 06/29/22 05/14/25 documented as of this encounter
--- OUTSIDE RECORDS SUMMARY | 2025-07-11 09:46 | XMS_ITS | Clinical Summary ---
Author Organization [facility] Address [address] [place] [address] Phone Care Team Providers Care Serologist Name Role Phone Carly Melgar Primary Care Provider + Allergies [...] left leg. 45 g 1 4 Active Varenicline Tartrate, Starter, (Chantix Starting Month ) 0.5 MG X 11 & 1 MG X 42 Tablet Therapy PackIndications: Encounter for smoking cessation counseling Take as directed 53 Each 5 Active losartan (COZAAR) 50 MG TabletIndication s:Hypertension, unspecified type Take 1 Tablet by mouth daily. 90 Tablet 1 5 Active celecoxib (CeleBREX) 200 MG Capsule TAKE 1 CAPSULE BY MOUTH TWICE DAILY 180 Capsule 1 5 Active busPIRone (BUSPAR) 10 MG Tablet TAKE 1 TABLET BY MOUTH TWICE DAILY 180 Tablet 1 5 Active pantoprazole (PROTONIX) 40 MG Tablet Delayed Response TAKE 1 TABLET BY MOUTH DAILY 90 Tablet 1 5 Active famotidine (PEPCID) 40 MG Tablet TAKE 1 TABLET BY MOUTH EVERY NIGHT 90 Tablet 1 5 Active escitalopram (LEXAPRO) 20 MG Tablet Take 1 Tablet by mouth daily. 90 Tablet 1 5 Active atorvastatin (LIPITOR) 10 MG Tablet TAKE 1 TABLET BY MOUTH DAILY 90 Tablet 1 5 Active amLODIPine (NORVASC) 5 MG TabletIndication s:Hypertension, unspecified type TAKE 1 TABLET BY MOUTH DAILY 90 Tablet 1 5 Active sildenafil citrate (VIAGRA) 100 MG Tablet TAKE 1 TABLET BY MOUTH NEEDED FOR ERECTILE DYSFUNCTION 30 Tablet 5 Active Active Problems Problem Noted Date Diagnosed Date Hypertension 05/18/2023 Erectile dysfunction 08/17/2017 Anxiety 08/17/2017 Chronic pain syndrome 08/17/2017 Dyslipidemia 08/17/2017 Chronic bronchitis 08/17/2017 Hepatitis C virus infection resolved after antiviral drug therapy 08/17/2017 Encounters Date Type Department Care Team Description 05/19/2025 Refill [facility] [place] [place] [address] [place] [address] Carly Melgar PAC Medication Refill 05/10/2025 Refill [facility] [place] [place] [address] [place] [address] Carly Melgar PAC Medication Refill 04/12/2025 MyChart RX Renewal [facility] [address] [place] [address] Carly Melgar PAC Medication Renewal Reviewed from Last 3 Months Immunizations Immunization Administration Dates Next Due Influenza Vaccine, Quadrivalent, PF 06/28/2019,0 09/27/2018 Pneumococcal Vaccine Adult - 23 Valent 9,08/17/2017 Pneumococcal conjugate PCV20 , polysaccharide [id number] conjugate, adjuvant, PF 11/20/2024 TDAP Vaccine 01/05/2017 Family History Medical History [...] drink = 0.6 oz pu re alcohol) [facility] Utilities Answer Date Recorded In the past 12 months has Med[employer], oil, or water [employer] threatened to shut off services in your home? Patient declined 11/20/2024 Social Connection and Isolation Panel Answer Date Recorded In a typical week, how many times do you talk on the phone with family, friends, or neighbors? Patient declined 11/20/2024 How often do you get togethe r with friends or relatives? Patient declined 11/20/2024 How often do you attend alevism or pentecostal serv ices? Patient declined 11/20/2024 Do you belong to any clubs o r organizations such as alevism groups, unions, fraternal or athletic groups, or school groups? Patient declined 11/20/2024 How often do you attend meet ings of the clubs or organizations you belong to? Patient declined 11/20/2024 Are you , , di vorced, , never , or living with a partner? Patient declined 11/20/2024 AUDIT-C Answer Date Recorded Q1: How often do you have a drink containing alc ohol? Patient declined 11/20/2024 Q2: How many drinks containi ng alcohol do you have on a typical day when you are drinking? Patient declined 11/20/2024 Q3: How often do you have si x or more drinks on one occasion? Patient declined 11/20/2024 Overall Financial Resource Strain (CARDIA) Answe r Date Recorded How hard is it for you to pa y for the very basics like food, housing, medical care, and heating? Patient declined 11/20/2024 PHQ-2 Answer Date Recorded Total Score - Questions 1-9 15 10/29 [facility] - Occupational Stress Questionnaire Answer Date Recorded Do you feel stress - tense, restless, nervous, or anxious, or unable to sleep at night because your mind is troubled all the time - these days? Patient declined 11/20/2024 Exercise Vital Sign Answer Date Recorde d On average, how many days pe r week do you engage in moderate to strenuous exercise (like a brisk walk)? Patient declined On average, how many minutes do you engage in exercise at this level? Patient declined 11/20/2024 Hunger Vital Sign Answer Date Recorded Within the past 12 months, y ou worried that your food would run out before you got the money to buy more. Patient declined Within the past 12 months, t he food you bought just didn't last and you didn't have money to get more. Patient declined PRAPARE - Transportation Answer Date Re corded In the past 12 months, has l ack of transportation kept you from medical appointments or from getting medications? Patient declined 11/20/2024 In the past 12 months, has l ack of transportation kept you from meetings, work, or from getting things needed for daily living? Patient declined 11/20/2024 Housing Stability Vital Sign Answer Steve e [...] place to sleep or slept in a longterm (including now)? No 10/05/2023 Housing Stability Vital Sign Answer Steve e Recorded In the last 12 months, was t here a time when you were not able to pay the mortgage or rent on time? Patient declined 11/21/19 25 In the past 12 months, how m any times have you moved where you were living? 0 11/20/2024 At any time in the past 12 m [facility], were you homeless or living in a longterm (including now)? Patient declined 11/20/2024 Education Answer Date Recorded What is the [...] Sign Reading Time Taken Comments Blood Pressure 140/70 11/20/2024 8:39 AM CDT Pulse 68 11/20/2024 8:39 AM CDT Temperature 36.8 C (98.3 F) 11/20/2024 8:39 AM CDT Respiratory Rate 18 02/09/2023 7:28 AM CDT Oxygen Saturation 100% 11/20/2024 8:39 AM CDT Inhaled Oxygen Concentration - - Weight 86.2 kg (190 lb) 11/20/2024 8:39 AM CDT Height 170.2 cm (5' 7) 11/20/2024 8:39 AM CDT Body Mass Index 29.76 11/20/2024 8:39 AM CDT Plan of Treatment Health Maintenance Due Date Last Done Comments Cologuard 02/05/2008 Immunochemical Fecal Occult Blood 02/05/2008 Respiratory Syncytial Virus (RSV) Immunization (Adult) (1 - Risk 50-74 years 1-dose series) 2013 Zoster Immunization (1 of 2) 2013 Lung Cancer Screening 06/04/2024 06/04/2023 , 01/21/2022, 10/13/2019 Colonoscopy 04/01/2025 04/01/2020, 04/01/2020 Colorectal Cancer Screening 04/01/2025 Influenza Immunization (#1) 2025 06/28/2019, 0 09/27/2018 SARS-COV-2 Immunization ( season) 2025 Td Immunization Every 10 Years (Adults With 1 Tdap) 01/05/2027 01/05/2017 Hepatitis C Virus (HCV) Screening Completed 05/18/2023, 02/12/2023 PSA Discussion Completed 11/20/2024, 02/2024, 05/06/2022, Additional history exists Pneumococcal Immunization (50+ years) Completed 11/20/2024, 09/27/2018, 08/17/2017 Pneumococcal Immunization Combined Discontinued 11/20/2024, 09/27/2018, 08/17/2017 Hepatitis B Immunization Aged Out No longer eligible based on patient's age to complete this topic Human Papillomavirus (HPV) Immunization Aged Out No longer eligible based on patient's age to complete this topic Meningococcal Immunization (ACWY) Aged Out No longer eligible based on patient's age to complete this topic Rotavirus Immunization Aged Out No lo nger eligible based on patient's age to complete this topic Procedures Procedure Name Priority Date/Time Associated Diagnosis Comments PSA SCREEN Routine 11/20/2024 9:44 AM CDT Prostate cancer screening CT CHEST SCREENING WO [...] to Health Maintenance Results * PSA SCREEN (11/20/2024 9:44 AM CDT) PSA SCREEN, TOTAL 0.54 <4.00 ng/mL 11/20/2024 1:14 PM CDT [facility] Blood Venipuncture / Unknown 11/20/2024 9:44 AM CDT 11/20/2024 12:06 PM CDT Narrative [facility] - 11/20/2024 1:14 PM CDT The ALINITY Total PSA assay is a Chemiluminescent Microparticle Immunoassay (CMIA) for the quantitative determination of total PSA (both free PSA and PSA complexed to [id number]) in human serum. Total PSA values obtained with different assay methods, including Alfredo PSA assays, cannot be used interchangeably. us Carly Melgar PAC CHEMISTRY ORDERABLES Fin al Result [facility] [address] [place] [address] * CT CHEST SCREENING WO (06/04/2023 8:00 [...] Rekha Moses D.O. AC: SERGEI Report ID: [id number] Reading Location: [id number] Procedure Note Rekha Moses DO - 06/05/2023 [...] Rekha Moses D.O. AC: SERGEI Report ID: [id number] Reading Location: [place] [address] IMPRESSION: 1. No pulmonary mass or suspicious noncalcified pulmonary nodule. 2. Mild/moderate emphysema. Chronic bronchitis. Lung-RADS category 1: Negative. Recommendation: Low dose Screening CT of chest in 12 months. Carly Melgar [facility] CT ORDERABLES Final Result * HEPATITIS C RNA QUANT PCR VIRAL LOAD (05/18/2023 8:49 AM CDT) HCV RNA QUANT PCR NON DETECTED NON DETECTED 05/20/2023 1:45 PM CDT [facility] HCV RNA QT LOG10 05/20/2023 1:45 PM CDT [facility] Comment: LOG 10 is not applicable. Sample held in Serology for 1 month. Call Laboratory if further testing is desired. This test was performed using MARLYN AmpliPrep MARLYN Taq Man Real Time PCR. Blood Venipuncture / Unknown 05/18/2023 8:49 AM CDT 05/18/2023 8:49 AM CDT us Melinda Souza MD IMMUNOLOGY ORDERABLES Final Result [facility] [address] [place] [address], [place] * HM COLONOSCOPY (04/01/2020) us Raz Melchor MD PROCEDURE/MINOR SURGICAL ORDER GUERRERO Final Result from Last 3 Months or Most Recently Relevant to Health Maintenance Insurance [facility] Care Teams Serologist Relationship Specialty Start Date End Date Carly Melgar PAC [address] [place] [address] PCP - General Physician Fire Technician 10/05/23
--- OUTSIDE RECORDS SUMMARY | 2025-07-11 09:46 | XMS_ITS | Encounter Summary ---
Author Organization [facility] Address [address] [place] [address] Phone Care Team Providers Care Compliance Advisor Name Role Phone Melinda Souza MD Primary Care Provider Rolando Rodriguez MD Unavailable Carly Melgar Primary Care Provider + Reason for Visit * Reason Comments Medication Refill Encounter Details Date Type Department Care Team (Late st Contact Info) Description 02/06/2023 Refill [facility] Medical Group - Family Medicine [facility] [place] [address] [place] [address] [place] [address] [place] [address] Medication Refill Social History Tobacco Use Types [...] Depression Total Score: 0 11/04/19 8:00 AM MACHINE SPRING FORMER documented as of this encounter Care Teams Compliance Advisor Relationship Specialty Start Date End Date Melinda Souza MD PCP - General Family Medicine 08/17/17 10/03/23 Carly Melgar PAC [address] [place] [address] PCP - General Physician Fall Intern 10/05/23 Rolando Rodriguez MD [address] [facility] [address] [address] Consulting Physician Endocrinology 06/29/22 05/14/25 documented as of this encounter
--- OUTSIDE RECORDS SUMMARY | 2025-07-11 09:47 | XMS_ITS | Clinical Summary ---
Author Organization [facility] Address [address] [place] [address] Care Team Providers Care Clinical Program Manager Name Role Phone Feliberto Romero MD Primary Care Provider Source Comments [facility],non-owned Affiliates and Associated Physician Practices is amultiple site organization consisting of ambulatory clinics and hospital sitesin [place], [place], [place] and [place]. This disclosure is being madepursuant to the Care Everywhere program and may not contain all information available regarding this patient. 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 CASHIER Gender Identity Not on file Sexual Orientation [...] 2013 ZOSTER VACCINE (1 of 2) 2013 DEPRESSION SCREENING 08/30/2024 COVID-19 VACCINE (1 - 2023-2 5 season) 2025 INFLUENZA VACCINE (#1) 2025 Respiratory Syncytial Virus (RSV) Vaccine Pt: or [...] to complete this topic MENINGOCOCCAL (Group B) VACC INE SHARED DECISION-MAKING Aged Out No longer eligibl e based on patient's age to complete this topic MENINGOCOCCAL GROUPS A/C/Y/W VACCINE Aged Out No longer eligible b ased on patient's age to complete this topic Insurance [facility] Member Subscriber Plan / Payer (Ef fective 2017-Present) Name:Yvon Shankar Relation to Subscriber:Spouse Name:REENA SHANKAR Subscriber ID:Not on file Payer ID:[id number] (NAIC) Type:PPO Address: [facility] [id number] [place] [id number] Care Teams Clinical Program Manager Relationship Specialty Start Date End Date Feliberto Romero MD [address] [place] [address] PCP - General 08/19/10
--- OUTSIDE RECORDS SUMMARY | 2025-07-11 09:47 | XMS_ITS | Encounter Summary ---
Author Organization [facility] Address [address] [place] [address] Phone Care Team Providers Care Club Waiter/Waitress Name Role Phone Rolando Rodriguez MD Unavailable Carly Melgar Primary Care Provider + Reason for Visit * Reason Comments Medication Refill Encounter Details Date Type Department Care Team (Late st Contact Info) Description 11/12/2023 Refill [facility] Medical Group - Family Medicine [facility] [address] [place] [phone] Carly Melgar PAC [address] [place] [address] Medication Refill Social History Tobacco Use Types Packs/Day Years Used Date Smoking Tobacco: Every Day Cigarettes 1 40 Smokeless Tobacco: Never Alcohol Use Standard Drinks/Week Comments Yes 12 (1 standard drink = 0.6 oz pu re alcohol) [facility] Utilities Answer Date Recorded In the past 12 months has [employer], gas, oil, or water [employer] threatened to shut off services in your home? No 10/05/2023 Social Connection and Isolation Panel Answer Date Recorded In a typical week, how many times do you talk on the phone with family, friends, or neighbors? Once a week 10/05/2023 How often do you get together with friends or re latives? Once a week 10/05/2023 Attends [employer] Not on file 10/05 Active Member [...] Total Score - Questions 1-9 0 01/2024 [facility] - Occupational Stress Questionnaire Answer Date [...] place to sleep or slept in a alf (including now)? No 10/05/2023 Education Answer Date [...] Total Score: 0 10/05/19 24 8:03 AM CHICKEN BUYER documented as of this encounter Care Teams Club Waiter/Waitress Relationship Specialty Start Date End Date Carly Melgar PAC [address] [place] [address] PCP - General Physician Felt Checker 10/05/23 Rolando Rodriguez MD #[address] [address] Consulting Physician Endocrinology 06/29/22 05/14/25 documented as of this encounter
--- OUTSIDE RECORDS SUMMARY | 2025-07-11 09:47 | XMS_ITS | Encounter Summary ---
Author Organization [facility] Address [address] [place] [address] Phone Care Team Providers Care Small Parts Assembler Name Role Phone Melinda Souza MD Primary Care Provider [phone] Rolando Rodriguez MD Unavailable Carly Melgar Primary Care Provider + Reason for Visit * Reason Comments Medication Refill Encounter Details Date Type Department Care Team (Late st Contact Info) Description 04/29/2023 Refill [facility] Medical Group - Family Medicine [facility] [address] [place] [address] [place] [address] [place] [address] Medication Refill Social History Tobacco Use Types [...] Time PHQ-9 Depression Total Score: 0 11/04/19 23 8:00 AM SAMPLE PREP TECHNICIAN documented as of this encounter Care Teams Small Parts Assembler Relationship Specialty Start Date End Date Melinda Souza MD PCP - General Family Medicine 08/17/17 10/03/23 Carly Melgar PAC [address] [place] [address] PCP - General Physician Ampoule Inspector 10/05/23 Rolando Rodriguez MD [address] [address] Consulting Physician Endocrinology 06/29/22 05/14/25 documented as of this encounter
--- OUTSIDE RECORDS SUMMARY | 2025-07-11 09:47 | XMS_ITS | Encounter Summary ---
Author Organization [facility] Address [address] [place] [address] Phone Care Team Providers Care Criminal Investigative Agent Name Role Phone Melinda Souza MD Primary Care Provider Rolando Rodriguez MD Unavailable aCrly Melgar Primary Care Provider + Reason for Visit * Reason Comments Medication Refill Encounter Details Date Type Department Care Team (Late st Contact Info) Description 08/26/2023 Refill [facility] Medical Group - Family Medicine [facility] [address] [place] [address] [place] [address] [place] [address] Medication Refill Social History Tobacco Use Types [...] Lorelei Vargas RN - 08/26/2023 10:56 AM ORTHOPEDIC SHOE FITTER Per nursing clinical judgement, provider to review [...] Dept 05/18/23 Office Visit Carly Melgar PAC [facility] 02/09/23 Office Visit Melinda Souza MD [facility] 11/03/22 Office Visit Melinda Souza MD [facility] [place] Showing recent visits within past 365 days and meeting all other requirements Future Appointments No visits were found meeting these conditions. Showing future appointments within next 90 days and meeting all other requirements OPEDIC SHOE FITTER documented in this encounter Plan of Treatment Not on file documented as of this encounter Visit Diagnoses Not on filedocumented in this encounter Additional Health Concerns Assessment Noted Time PHQ-9 Depression Total Score: 0 05/18/20 8:03 AM CDT documented as of this encounter Care Teams Criminal Investigative Agent Relationship Specialty Start Date End Date Melinda Souza MD PCP - General Family Medicine 08/17/17 10/03/23 Carly Melgar PAC [address] [place] [address] PCP - General Physician Visual Journalist 10/05/23 Rolando Rodriguez MD [address] [address] Consulting Physician Endocrinology 06/29/22 05/14/25 documented as of this encounter
--- OUTSIDE RECORDS SUMMARY | 2025-07-11 09:47 | XMS_ITS | Clinical Summary ---
Author Organization [facility] Address [address] [place] [address] Care Team Providers Care Shredding Specialist Name Role Phone Carly Melgar Primary Care Provider Allergies No known active allergies Medications dicyclomine (BENTYL) 10 mg capsule take 1 - 2 Capsule by ORAL route every day as needed 30 5 7 Active multivitamin capsule take 1 capsule by oral route every day 0 2 Active atorvastatin (LIPITOR) 10 mg tablet Take 1 tablet (10 mg total) by mouth daily. 90 tablet 3 7 Active propranoloL (INDERAL) 10 mg tabletIndicatio ns:hypertension Take 1 tablet (10 mg total) by mouth 3 (three) times a day Active escitalopram (LEXAPRO) 10 mg tabletIndicatio ns:Anxiety with Depression Take 2 tablets (20 mg total) by mouth daily Active aspirin 81 mg enteric coated tabletIndicatio ns:prevention of thrombosis Take 1 tablet (81 mg [...] mouth 2 (two) times a day Active HYDROcodone-lacey taminophen (NORCO) 7.5-325 mg per tabletIndicatio ns:Pain Take 1 tablet by mouth every 6 (six) hours as needed for pain Active fluticasone propionate (FLONASE) 50 mcg/actuation nasal sprayIndication s:Chronic rhinitis Administer 2 sprays into each nostril daily 16 g 11 3 Active Additional Information Patient not taking.Reported on 10/12/2023 famotidine (PEPCID) 40 mg tabletIndicatio ns:Laryngeal spasm TAKE 1 TABLET(40 MG) BY MOUTH EVERY NIGHT 90 tablet 5 Active Active Problems Problem Noted Date Diagnosed Date Pharyngoesophageal dysphagia 10/12/2023 Assessment & Plan (10/12/2023 12:38 PM TANK CAR REPAIRER): Esophagram Referral to GI for EGD Continue [...] 03/08/2023 Assessment & Plan (10/12/2023 12:38 PM TANK CAR REPAIRER): Esophagram Referral to GI for EGD Continue famotidine 40 mg at bedtime Continue smoking cessation Assessment & Plan (03/08/2023 8:31 AM CDT): Pepcid 40 mg at bedtime Laryngopharyngeal reflux discussed and Handout provided Special screening for malignant neoplasms, colon 01/10/2020 Overview (01/10/2020): Added automatically from request for surgery [id number] Surgical History Surgery Date Site/Laterality Comments OTHER SURGICAL HISTORY ankle fracture left and right: pinned/surgery APPENDECTOMY Appendectomy TONSILLECTOMY Tonsillectomy KNEE ARTHROSCOPY Arthroscopy knee KNEE ARTHROSCOPY 08/30/1985 - 08/29/1986 Arthroscopy knee POLYPECTOMY COLONOSCOPY 04/09/2017 KNEE SURGERY KNEE ARTHROSCOPY ESOPHAGOGASTRODUODENOSCOPY 10/26/2023 Medical History Medical History Date Comments Hx Other Medical 1989 ankle fracture left and right Pulmonary emphysema Emphysema Hx Other Medical Hepatitis Colon polyp Emphysema of lung Family History Medical History Relation Name Comments [...] on file Legal Sex Male 1:44 PM TANK CAR REPAIRER Gender Identity Not on file Sexual Orientation Not on file Last Filed Vital Signs Vital Sign Reading Time Taken Comments Blood Pressure 136/82 10/26/2023 8:50 AM TANK CAR REPAIRER Pulse 57 10/26/2023 8:50 AM TANK CAR REPAIRER Temperature 36.7 C (98 F) 10/26/2023 8:50 AM TANK CAR REPAIRER Respiratory Rate 18 10/26/2023 8:50 AM TANK CAR REPAIRER Oxygen Saturation 100% 10/26/2023 8:50 AM TANK CAR REPAIRER Inhaled Oxygen Concentration - - Weight 82.6 kg (182 lb) 10/26/2023 7:32 AM TANK CAR REPAIRER Height 167.6 cm (5' 6) 10/26/2023 7:32 AM TANK CAR REPAIRER Body Mass Index 29.38 10/26/2023 7:32 AM TANK CAR REPAIRER Plan of Treatment Health Maintenance Due Date Last Done Comments Hepatitis B Screening 1981 Regular Well Visit/Exam 18-64 1981 Zoster Vaccine (1 of 2) 2013 Depression Screening 07/06/2018 07/06/2017, 05/11/20 Prostate Cancer Screening-PSA 12/23/2018 12/23/2016 Pneumococcal vaccine <65 (2 of 2 - PCV) 09/27/2019 09/27/2018, 08/17/2017 Colon Cancer Screening-Colonoscopy 04/01/2030 04/01/2020, 04/09/2017, 04/09/2017, [...] Melchor MD - 04/01/2020 7:54 AM CDT [facility] Patient Name: Yvon Shankar Procedure Date: 04/01/2020 7:54 AM Date of : 1965 Admit Type: Outpatient Age: 55 Gender: Male Attending MD: Raz Melchor M.D. Room: [facility] ENDOSCOPY ROOM 2 Note Status: Finalized Patient [...] scope was passed under direct vision.The Colonoscope [id number] was introducedthrough the anus and advanced to [...] history of colonic polyps CPT copyright 2017 [employer]. All rights reserved. The codes documented in this report are preliminary and upon physician coder reviewmay be revised to meet current compliance requirements. Recognized by the [employer] for promoting quality in endoscopy us Raz Melchor MD ENDOSCOPY PROCEDURES Final Re sult * PSA screen (12/23/2016 8:50 AM CDT) PSA-Total 0.47 0.10 - 4.00 ng/mL CANDE CHRISTOPHER (ASAF) Blood specimen (specimen) 12/23/2016 8:50 AM CDT 12/23/2016 6:03 PM CDT Narrative CANDE CHRISTOPHER (ASAF) - 12/23/2016 7:21 PM CDT FAX RESULTS TO [phone] Feliberto Romero LAB BLOOD ORDERABLES Final Resul t CNADE CHRISTOPHER (ASAF) 1 [facility] [place] [address] from Last 3 Months or Most Recently Relevant to Health Maintenance [place] Advance Directives For more information, please contact: [phone] * Full Code (Latest Code Status on File) Date Activated Date Inactivated Comments 10/26/2023 7:26 AM 10/26/2023 1:11 PM * Full Code Date Activated Date Inactivated Comments 10/26/2023 7:26 AM 10/26/2023 7:26 AM * Full Code Date Activated Date Inactivated Comments 04/01/2020 7:53 AM 04/01/2020 1:09 PM * Full Code Date Activated Date Inactivated Comments 04/01/2020 7:53 AM 04/01/2020 7:53 AM Care Teams Shredding Specialist Relationship Specialty Start Date End Date Carly Melgar PA [address] [address] PCP - General Welt Edge Rounder 10/20/23
--- OUTSIDE RECORDS SUMMARY | 2025-07-11 09:47 | XMS_ITS | Encounter Summary ---
Author Organization [facility] Address [address] [place] [address] Phone Care Team Providers Care Glost Tile Shader Name Role Phone Rolando Rodriguez MD Unavailable Carly Melgar Primary Care Provider + Reason for Visit * Reason Comments Medication Refill Encounter Details Date Type Department Care Team (Late st Contact Info) Description 12/03/2023 Refill [facility] Medical [facility] - [facility] [address] [place] [phone] Carly Melgar PAC [address] [place] [address] Medication Refill Social History Tobacco Use Types Packs/Day Years Used Date Smoking Tobacco: Every Day Cigarettes 1 40 Smokeless Tobacco: Never Alcohol Use Standard Drinks/Week Comments Yes 12 (1 standard drink = 0.6 oz pu re alcohol) [facility] Utilities Answer Date Recorded In the past 12 months has [employer], gas, oil, or water [employer] threatened to shut off services in your home? No 10/05/2023 Social Connection and Isolation Panel Answer Date Recorded In a typical week, how many times do you talk on the phone with family, friends, or neighbors? Once a week 10/05/2023 How often do you get together with friends or re latives? Once a week 10/05/2023 Attends [employer] Services Not on file 10/05 Active Member [...] Total Score - Questions 1-9 0 01/2024 [facility] - Occupational Stress Questionnaire Answer Date [...] place to sleep or slept in a nursing home (including now)? No 10/05/2023 Education Answer [...] PM CDT Medication(s) refilled and signed per [facility] Chronic Medication Refill Standing Order for [...] Dept 10/05/23 Office Visit [facility]arly [facility] [place] Showing recent visits within past 182 days and meeting all other requirements Future Appointments Date Type Provider Dept 01/04/24 Appointment Carly Melgar PAC [facility] Showing future appointments within next [...] Total Score: 0 10/05/19 24 8:03 AM WAREHOUSE DISTRIBUTION SPECIALIST documented as of this encounter Care Teams Glost Tile Shader Relationship Specialty Start Date End Date Carly Melgar PAC [address] [place] [address] PCP - General Physician Glueline Worker 10/05/23 Rolando Rodriguez MD [address] [address] Consulting Physician Endocrinology 06/29/22 05/14/25 documented as of this encounter
--- OUTSIDE RECORDS SUMMARY | 2025-07-11 09:47 | XMS_ITS | Encounter Summary ---
Author Organization [facility] Address [address] [place] [address] Phone Care Team Providers Care Staff Nurse Icu Resource Team Name Role Phone Melinda Souza MD Primary Care Provider Rolando Rodriguez MD Unavailable Carly Melgar Primary Care Provider + Reason for Visit * Reason Comments Medication Refill Encounter Details Date Type Department Care Team (Late st Contact Info) Description 09/09/2023 Refill [facility] - Family Medicine [facility] [address] [place] [address] [place] [address] [place] [address] Medication Refill Social History Tobacco Use Types [...] Kyra Brown RMA - 09/13/2023 9:25 AM MEAT CUTTING BLOCK REPAIRER scheduled CUTTING BLOCK REPAIRER * Telephone Encounter - Rosalinda Liu RN - 09/10/2023 8:45 AM CST Needs OV to transfer care CUTTING BLOCK REPAIRER * Telephone Encounter - Rosalinda Liu RN [...] Type Provider Dept 05/18/23 Office Visit Carly Melgar, [facility] [place] Showing recent visits within past 182 days and meeting all other requirements Future Appointments No visits were found meeting these conditions. Showing future appointments within next 90 days and meeting all other requirements Passed - Patient has established therapy with SSRI for at least 6 months CUTTING BLOCK REPAIRER documented in this encounter Plan of Treatment Not on file documented as of this encounter Visit Diagnoses Not on filedocumented in this encounter Additional Health Concerns Assessment Noted Time PHQ-9 Depression Total Score: 0 05/18/20 8:03 AM CDT documented as of this encounter Care Teams Staff Nurse Icu Resource Team Relationship Specialty Start Date End Date Melinda Souza MD PCP - General Family Medicine 08/17/17 10/03/23 Carly Melgar PAC [address] [place] [address] PCP - General Physician Foreign Banknote Teller 10/05/23 Rolando Rodriguez MD #[address] [address] Consulting Physician Endocrinology 06/29/22 05/14/25 documented as of this encounter
--- OUTSIDE RECORDS SUMMARY | 2025-07-11 09:47 | XMS_ITS | Encounter Summary ---
Author Organization [facility] Address [address] [place] [address] Phone Care Team Providers Care Public Relations Studies Director Name Role Phone Melinda Souza MD Primary Care Provider Rolando Rodriguez MD Unavailable Carly Melgar Primary Care Provider + Reason for Visit * Reason Comments Medication Refill Encounter Details Date Type Department Care Team (Late st Contact Info) Description 07/09/2023 Refill [facility] Medical Group - Family Medicine [facility] [address] [place] [address] [place] [address] [place] [address] Medication Refill Social History Tobacco Use Types [...] [place] 02/09/23 [facility] [place] 11/03/22 Office Visit Melinda Souza MD [facility] Showing recent visits within past 365 days and meeting all other requirements Future Appointments No visits were found meeting these conditions. Showing future appointments within next 90 days and meeting all other requirements Passed - Absence of nitrates on med list Passed - Erectile dysfunction on problem list RIALS AND CORROSION ENGINEER documented in this encounter Plan of Treatment Not on file documented as of this encounter Visit Diagnoses Not on filedocumented in this encounter Additional Health Concerns Assessment Noted Time PHQ-9 Depression Total Score: 0 05/18/20 8:03 AM CDT documented as of this encounter Care Teams Public Relations Studies Director Relationship Specialty Start Date End Date Melinda Souza MD PCP - General Family Medicine 08/17/17 10/03/23 Carly Melgar PAC [address] [place] [address] PCP - General Physician Driver Lifter Of Sanitation Truck 10/05/23 Rolando Rodriguez MD [address] [place] [phone] Consulting Physician Endocrinology 06/29/22 05/14/25 documented as of this encounter
== END 2025-07-11 09:47 | disposition home or self-care (01) ==
PROVIDERS: Emergency Provider Registered Nurse
DX: J40 Bronchitis, not specified as acute or chronic (principal); J01.40 Acute pansinusitis, unspecified; J44.9 Chronic obstructive pulmonary disease, unspecified; I10 Essential (primary) hypertension; F17.210 Nicotine dependence, cigarettes, uncomplicated
CPT/HCPCS: 99213; G0463